=== PATIENT | male | born 1965 | race Caucasian/White ===

== ENCOUNTER → 2019-07-13 13:38 | Outpatient (CLI) | payer BC, SELFPAY ==
[2019-07-13 14:51] LABS: Basophils # 0.1 K/mm3 (0-0.2); Basophils % 0.8 % (0.1-2.0); Eosinophils # 0.2 K/mm3 (0.0-0.4); Eosinophils % 2.1 % (0.1-12.0); Hematocrit 45.5 % (42.0-52.0); Hemoglobin 14.9 g/dL (14.1-18.0); Lymphocytes # 2.8 K/mm3 (0.7-4.5); Lymphocytes % 36.3 % (10-50); Mean Corpuscular HGB Conc 32.9 g/dL (31.8-35.4); Mean Corpuscular Hemoglobin 29.9 pg (27.0-31.2); Mean Platelet Volume 8.7 fl (7.4-10.4); Monocytes # 0.6 K/mm3 (0.1-1.0); Monocytes % 7.6 % (1.7-9.3); Neutrophils # 4.1 K/mm3 (1.8-7.8); Neutrophils % 53.3 % (37.0-80.0); Platelet Count 329 K/mm3 (142-424); Red Cell Distribution Width 12.7 % (11.5-17.5); White Blood Count 7.8 K/mm3 (4.8-10.8)
[2019-07-13 14:52] LABS: Alanine Aminotransferase 32 U/L (12-78); Albumin Level 4.5 g/dl (3.5-5.0); Albumin/Globulin Ratio 1.5 (1.1-1.8); Alkaline Phosphatase 44 U/L (38-126); Anion Gap 14.5 mEq/L (5-15); Aspartate Amino Transferase 26 U/L (17-59); Bilirubin,Total 0.3 mg/dl (0.2-1.3); Blood Urea Nitrogen 23 mg/dl (9-20); Calcium 9.8 mg/dl (8.4-10.2); Carbon Dioxide 23 mmol/L (22.0-30.0); Chloride 107 mmol/L (98-107); Chol/HDL Ratio 6.4 (1-3.5); Cholesterol 205 mg/dl (140-200); Estimated Glomerular Filt Rate 118 ml/min (>60); GFR (African American) 142 ML/MIN (>60); Glucose 97 mg/dl (74-100); HDL Cholesterol 32 mg/dl (40-60); Potassium 4.5 mmoL/L (3.5-5.1); Sodium 140 mmol/L (136-145); Total Protein,Serum 7.5 g/dl (6.3-8.2); Triglycerides 226 mg/dl (30-150); Uric Acid 8.7 mg/dl (3.5-8.5); VLDL Cholesterol 45 mg/dL (0-40)
[2019-07-13 15:03] LABS: Direct LDL Cholesterol 142.88 mg/dL (100-129)
[2019-07-13 15:11] LABS: T4 (Thyroxine) 7.9 ug/dl (5.53-11.0)
[2019-07-13 15:25] LABS: Prostate Specific Ag Screen 2.2 ng/ml (0.0-4.0); Thyroid Stimulating Hormone 2.23 uIU/mL (0.465-4.68)
[2019-07-13 15:45] LABS: Erythrocyte Sedimentation Rate 8 mm/hr (0-20)
[2019-07-15 23:10] LABS: Vitamin D 25 Hydroxy 29.6 ng/mL (30.0-100.0)
== END ==
PROVIDERS: Visit Provider Emergency Medicine
DX: M10.071 Idiopathic gout, right ankle and foot
CPT/HCPCS: 80053; 80061; 82652; 84436; 84443; 84550; 85025; 85651; G0103

== ENCOUNTER → 2019-08-13 10:05 | Outpatient (CLI) | payer BC, SELFPAY ==
--- NOTE | 2019-08-13 10:06 | MR_ITS ---
PROCEDURE: MR CERVICAL SPINE WO CON CLINICAL INDICATION: Neck pain, Neck pain and right shoulder pain. Right arm pain numbness and soreness COMPARISON: No exams were available for comparison TECHNIQUE: Standard multiplanar multiecho sequences are performed without contrast. 3-D MIP and myelographic images are also rendered and reviewed FINDINGS: The craniocervical junction has an unremarkable appearance. There is normal alignment with slight reversal of the cervical lordosis. C2-C3: There is some mild right foraminal narrowing from facet and uncovertebral hypertrophy. C3-C4: Mild bilateral foraminal narrowing from facet and uncovertebral hypertrophy and minimal bulging disc. There is borderline narrowing of the canal at 11-12 mm. C4-C5: Degenerative disc disease. There is moderate to severe right-sided foraminal narrowing from facet and uncovertebral hypertrophy C5-C6: Degenerate disc disease with bulging disc with narrowing of the canal at 10 mm. There is uncovertebral hypertrophy with severe bilateral foraminal narrowing. There is mild retrolisthesis of C5 of 3 mm. There is a small left foraminal disc osteophyte complex causing left lateral recess and foraminal narrowing. C6-C7 and C7-T1 have an unremarkable appearance. IMPRESSION: 1. Abnormal MRI of the cervical spine with multilevel cervical spondylosis with degenerative disc disease, bulging disc, and facet and uncovertebral hypertrophy.. Please see above for detailed description at each level 2. C3-C4: Mild bilateral foraminal narrowing from facet and uncovertebral hypertrophy and minimal bulging disc. There is borderline narrowing of the canal at 11-12 mm. 3. C4-C5: Degenerative disc disease. There is moderate to severe right-sided foraminal narrowing from facet and uncovertebral hypertrophy 4. C5-C6: Degenerate disc disease with bulging disc with narrowing of the canal at 10 mm. There is uncovertebral hypertrophy with severe bilateral foraminal narrowing. There is mild retrolisthesis of C5 of 3 mm. There is a small left foraminal disc osteophyte complex causing left lateral recess and foraminal narrowing. Dictated by: Mango Mims MD 08/14/2019 09:07 Electronically signed by Mango Mims MD in [place] 08/14/2019 09:07
== END ==
PROVIDERS: PCP Nurse Practitioner Family; Visit Provider Nurse Practitioner Family
DX: M54.2 Cervicalgia (principal); R20.0 Anesthesia of skin; R20.2 Paresthesia of skin
CPT/HCPCS: 72141; 76376

== ENCOUNTER → 2019-09-01 09:49 | Outpatient (POV) | payer BC, SELFPAY ==
[2019-09-01 10:12] VITALS: BP 187/78; PULSE 72; RESP 18; TEMP 36.8; O2SAT 98; BMI 29.7
--- NOTE | 2019-09-01 11:34 | HMH.PMCON ---
Assessment and Plan (1) Degenerative disc disease, cervical Current visit: Yes Status: Chronic Category: Medical Code(s): M50.30 - Other cervical disc degeneration, unspecified cervical region - Assessment and plan all Dx Assessment and Plan for all problems:: We will give the patient 1 month of gabapentin 300 mg 1 p.o. 3 times daily. We will see him back after he is seen been seen by Dr. Scott. He has been instructed to call the office if he has any issues prior to his next appointment. Dr. Trevino has reviewed this note and agrees with this plan of care. This note was dictated using voice recognition software and may contain errors or omissions HPI - Data of Consult Consult date: 09/01/19 Requesting Physician: Sandra Obregon APRN Primary Care Provider: Deniz Ellis MD - Consult Narrative Reason for consult: Neck pain History of present illness: Mr. Graham is a 54 year old male who presents today for consultation in regards to his cervical pain. Patient used to live in [place]. He was diagnosed by a neurosurgeon at that time via x-ray that he was in need of neck surgery. Patient has since moved to [place]. Patient was receiving [place] and gabapentin and cyclobenzaprine to help with the pain. Patient states that it did help. Patient and I discussed epidural injections he is uninterested in pursuing this. Patient does have an appointment with Dr. Scott September 13. Patient does have an MRI showing degenerative type changes along with severe foraminal narrowing. Most of his pain is neck radiating into his bilateral arms. He rates his pain today a 7 out of 10. He states all activity increases it while hot showers decrease it. Patient has completed physical therapy with minimal relief. CC: Sandra Obregon APRN [facility] [place] History I have reviewed the patient's past medical history: Yes Medical History: Denies:: Cancer, Diabetes Mellitus Type 1, Diabetes Mellitus Type 2, MRSA *Have you ever received a pneumonia vaccine?: Yes *Have you received a flu vaccine this season?: Yes Other Medical History: Reports: Glaucoma, Other (ABD hernias,gout) Other Surgeries: Yes: Cholecystectomy, Hernia Repair Amputation: No Fractures: Yes (left wrist,rt wrist,left knee) - *Social History Smoking Status: Current every day smoker Tobacco Type: cigarettes # Packs/Day (cigarettes): 1 Alcohol Intake: never Substance Use Type: denies use *Occupational Status:: other Housing: house Household Members: family *Travel in the last 8 weeks: None Family Hx:: Diabetes, Hypertension Review of Systems - Review of Systems ROS General: no recent weight change, no fever, no sleep disturbances Respiratory: no cough, no shortness of air, no recurring pulmonary infections Cardiovascular/Peripheral Vascular: No chest pain, No palpitations, no edema, no shortness of breath. Gastrointestinal: no new onset incontinence, normal bowel movements reported Genitourinary: no new onset incontinence Musculoskeletal: Neck pain Psychiatric: normal mood/ affect Neurological: [denies new onset weakness in extremities], [denies new onset balance issues] Meds Home Medications Medication Instructions Recorded Confirmed Type colchicine 0.6 mg capsule 0.6 mg PO BID 14 Days #28 cap 08/03/19 08/03/19 Rx cyclobenzaprine 10 mg tablet 10 mg PO TID PRN #30 tab 08/03/19 08/03/19 Rx indomethacin 50 mg capsule 50 mg PO BID 14 Days #28 cap 08/03/19 08/03/19 Rx prednisone 20 mg tablet 20 mg PO BID 10 Days #20 tab 08/03/19 08/03/19 Rx Gabapentin [Neurontin 300mg 300 mg PO TID #90 cap 09/01/19 Rx capsule] Allergies Allergy/AdvReac Type Severity Reaction Status Date / Time codeine Allergy Mild itch Verified 08/03/19 11:39 Objective Vital signs: Temp Pulse Resp BP Pulse Ox 98.2 F 72 18 187/78 H 98 09/01/19 10:12 09/01/19 10:12 09/01/19 10:12 09/01/19 10:12 09/01/19 10:12 Narrative: Physical Exam Gen
== END ==
PROVIDERS: PCP Emergency Medicine; Visit Provider Clinical Nurse Specialist Family Health
DX: M50.30 Other cervical disc degeneration, unspecified cervical region (principal)
CPT/HCPCS: 99202

== ENCOUNTER → 2019-09-21 14:40 | Outpatient (CLI) | payer BC, SELFPAY ==
[2019-09-21 19:25] LABS: Coronavirus 19 IgG Antibody Negative (Negative); Coronavirus 19 IgM Antibody Negative (Negative)
== END ==
PROVIDERS: PCP Nurse Practitioner Family; Visit Provider Nurse Practitioner Family
DX: Z03.818 Encounter for observation for suspected exposure to other biological agents ruled out (principal)
CPT/HCPCS: 36415; 86328

== ENCOUNTER 2020-01-19 12:16 | Emergency (ER) | payer BC, SELFPAY ==
[2020-01-19 12:33] VITALS: BP 135/78; PULSE 71; RESP 17; TEMP 36.7; O2SAT 98; BMI 31.9
--- NOTE | 2020-01-19 12:38 | CT_ITS ---
PROCEDURE: CT ABDOMEN PELVIS W CON CLINICAL INDICATION: rlq abd pain Right lower quadrant pain COMPARISON: No exams were available for comparison TECHNIQUE: IV Contrast: 75ML OPTIRAY 350 Oral Contrast None Axial images obtained with sagittal and coronal reformats. All CT scans at the facility use one or more dose reduction, viz: automated exposure control, ma/kV adjustment per patient size (including targeted exams where dose is matched to indication, i.e. head), or iterative reconstruction technique. FINDINGS: LOWER THORAX: Coronary artery calcification is noted. ABDOMEN & PELVIS: Status post cholecystectomy. The liver, spleen, adrenal glands, and pancreas have an unremarkable appearance. No renal or ureteral calculi. No hydronephrosis. There are few scattered small retroperitoneal lymph nodes. There is minimal ectasia the abdominal aorta measuring up to 2.5 cm. No evidence of appendicitis. There is colonic diverticulosis. No evidence of diverticulitis. No intestinal obstruction or free air. There is coarse central prostate calcification. The urinary bladder wall slightly thickened but may be due to nondistention. There is some increased density in subcutaneous fat at the umbilical region with a tiny right para umbilical hernia containing fat. This subcutaneous density could be related to scarring. There are small bilateral inguinal hernias which contain fat. No acute bony finding. Degenerative changes are present in the lumbar spine. A well-circumscribed cystic lesion involves the super acetabular area on the left measuring 3 cm by 1.7 cm. This has a benign appearance with sclerotic margins. IMPRESSION: 1. No acute abdominal or pelvic findings. 2. Unremarkable appearing appendix. No obstructing renal or ureteral calculi 3. Bilateral inguinal hernias. Small right para umbilical hernia with some irregular increased density at the umbilical region which could be some scarring 4. Benign-appearing cystic lesion of the super acetabular area on the left possibly due to a prominent geode. Consider follow-up to confirm stability Dictated by: Mango Mims MD 01/19/2020 13:16 Mango Mims MD in [place] 01/19/2020 13:16
[2020-01-19 12:50] LABS: Microscopic, Urine URINE MICROSCOPIC (MICROSCOPIC)
[2020-01-19 12:52] LABS: Appearance,Urine CLEAR (Clear); Bilirubin,Urine Negative (Negative); Blood, Urine 2+ (Negative); Color,Urine YELLOW (Yellow); Glucose,Urine (UA) Negative (Negative); Ketones,Urine Negative (Negative); Leukocyte Esterase,Urine Negative (Negative); Nitrate,Urine Negative (Negative); PH,Urine 5.5 (5.0-8.5); Protein,Urine Negative (Negative); Specific Gravity, Urine 1.025 (1.005-1.030); Urobilinogen,Urine 0.2 EU/dl (0.2)
[2020-01-19 12:53] LABS: Basophils # 0.1 K/mm3 (0-0.2); Basophils % 0.7 % (0.1-2.0); Eosinophils # 0.2 K/mm3 (0.0-0.4); Eosinophils % 3.1 % (0.1-12.0); Hemoglobin 15.1 g/dL (14.1-18.0); Lymphocytes # 2.6 K/mm3 (0.7-4.5); Lymphocytes % 34.8 % (10-50); Mean Corpuscular HGB Conc 32.8 g/dL (31.8-35.4); Mean Corpuscular Hemoglobin 30.4 pg (27.0-31.2); Mean Corpuscular Volume 92.6 fl (80-94); Mean Platelet Volume 6.9 fl (7.4-10.4); Monocytes # 0.5 K/mm3 (0.1-1.0); Monocytes % 6.2 % (1.7-9.3); Neutrophils # 4.1 K/mm3 (1.8-7.8); Neutrophils % 55.3 % (37.0-80.0); Platelet Count 285 K/mm3 (142-424); Red Blood Count 4.97 M/mm3 (4.60-6.20); Red Cell Distribution Width 12.3 % (11.5-17.5); White Blood Count 7.4 K/mm3 (4.8-10.8)
[2020-01-19 12:57] LABS: Chloride 108 mmol/L (98-107); Sodium 142 mmol/L (136-145)
[2020-01-19 12:58] LABS: Potassium 4.2 mmoL/L (3.5-5.1)
[2020-01-19 13:00] LABS: Alanine Aminotransferase 31 U/L (12-78); Alkaline Phosphatase 39 U/L (38-126); Amylase 65 U/L (30-110); Anion Gap 12.2 mEq/L (5-15); Aspartate Amino Transferase 30 U/L (17-59); Bilirubin,Total 0.4 mg/dl (0.2-1.3); Blood Urea Nitrogen 19 mg/dl (9-20); Calcium 9.7 mg/dl (8.4-10.2); Carbon Dioxide 26 mmol/L (22.0-30.0); Creatinine Clearance Estimated 169 mL/min (50-200); Estimated Glomerular Filt Rate 101 ml/min (>60); GFR (African American) 122 ML/MIN (>60); Glucose 135 mg/dl (74-100); Lipase 134 U/L (23-300)
[2020-01-19 13:01] LABS: Albumin Level 4.3 g/dl (3.5-5.0); Albumin/Globulin Ratio 1.5 (1.1-1.8); Globulin 2.9 g/dL (1.3-3.2); Total Protein,Serum 7.2 g/dl (6.3-8.2)
[2020-01-19 13:13] LABS: Troponin I < 0.01 ng/ml (0.00-0.034)
--- NOTE | 2020-01-19 14:01 | HMH.EDABDPAI ---
ED Disposition Clinical Impression: Bilateral inguinal hernia without obstruction or gangrene Qualifiers: Recurrence: not specified as recurrent Qualified Code(s): K40.20 - Bilateral inguinal hernia, without obstruction or gangrene, not specified as recurrent Disposition: Home, Self-Care Condition on Discharge: Good Instructions: DI for Groin Hernia Prescriptions: Hydrocodone/Acetaminophen [[place] 5-325 Tablet] 1 each PO TID #10 tab Prescription Printed Referrals: Deniz Ellis MD [Primary Care Provider] - Chirag Delgadillo MD [Staff Physician] - - Critical Care Critical Care Time: No Attestation: On 01/19/20, the high probability of a clinically significant, sudden or life threatening deterioration of the following system(s) required my full and direct attention, intervention and personal management. The time I documented below is in addition to time spent performing reported procedures but includes the following listed in this critical care notation. Medical Decision Making - Medical Records Medical records reviewed: Yes: I reviewed the patient's medical records. - Daniel Inquiry Pt receiving controlled substance: Yes Daniel was queried for this patient: No Reason not queried -: Daniel login issues Risks and benefits of using a controlled substance: were discussed with pt by me Vital Signs: 01/19/20 12:33 Temperature 98.0 F Temperature Source Oral Pulse Rate [Right Radial] 71 Respiratory Rate 17 Blood Pressure [Right Arm] 135/78 Blood Pressure Mean [Right Arm] 97 02 Sat by Pulse Oximetry 98 Oxygen Delivery Method Room Air - Lab Data Lab Results 01/19/20 12:30: Urine Color Yellow, Urine Appearance Clear, Urine pH 5.5, Ur Specific [place] 1.025, Urine Protein Negative, Urine Glucose (UA) Negative, Urine Ketones Negative, Urine Blood 2+, Urine Nitrate Negative, Urine Bilirubin Negative, Urine Urobilinogen 0.2, Ur Leukocyte Esterase Negative, Urine RBC 5-10, Urine WBC 3-5, Ur Squamous Epith Cells 3-5 01/19/20 12:30: WBC 7.4, RBC 4.97, Hgb 15.1, Hct 46.0, MCV 92.6, MCH 30.4, MCHC 32.8, RDW 12.3, Plt Count 285, MPV 6.9 L, Neut % (Auto) 55.3, Lymph % (Auto) 34.8, [place] % (Auto) 6.2, Eos % (Auto) 3.1, Baso % (Auto) 0.7, Neut # (Auto) 4.1, Lymph # (Auto) 2.6, [place] # (Auto) 0.5, Eos # (Auto) 0.2, Baso # (Auto) 0.1 01/19/20 12:30: Sodium 142, Potassium 4.2, Chloride 108 H, Carbon Dioxide 26, Anion Gap 12.2, BUN 19, Creatinine 0.80, Estimated Creat Clear 169, Estimated GFR 101, Est GFR ( Amer) 122, Glucose 135 H, Calcium 9.7, Total Bilirubin 0.4, AST 30, ALT 31, Alkaline Phosphatase 39, Troponin I < 0.01, Total Protein 7.2, Albumin 4.3, Globulin 2.9, Albumin/Globulin Ratio 1.5, Amylase 65, Lipase 134 Result diagrams: 01/19/20 12:30 01/19/20 12:30 Orders (Tests/Meds): ED MEDICATIONS Discontinued Medications Generic Name Dose Route Start Last Admin Trade Name Marioq PRN Reason Stop Dose Admin Sodium Chloride 1,000 mls @ 999 mls/hr 01/19/20 12:45 01/19/20 13:06 Sod Chlor 0.9% 1000ml Bag IV 01/19/20 13:45 999 mls/hr .Q1H1M DOE Administration Ioversol 75 ml 01/19/20 12:57 01/19/20 12:57 Ioversol-350 (74%) 100ml Vial IV 01/19/20 12:58 75 ml ONCE ONE Administration Protocol Ketorolac Tromethamine 30 mg 01/19/20 12:43 01/19/20 13:06 Ketorolac 30mg/Ml Vial IV 01/19/20 12:44 30 mg ONCE ONE Administration Morphine Sulfate 4 mg 01/19/20 12:44 01/19/20 13:06 Morphine 4mg/Ml Syringe IV 01/19/20 12:45 4 mg ONCE ONE Administration Ondansetron HCl 4 mg 01/19/20 12:43 01/19/20 13:06 Ondansetron 4mg/2ml Vial IV 01/19/20 12:44 4 mg ONCE ONE Administration Sodium Chloride 10 ml 01/19/20 12:57 01/19/20 12:57 Sodium Chloride 0.9% 10ml Syr (Rad Only) IV 01/19/20 12:58 10 ml ONCE ONE Administration ORDERS Category Date Time Status Troponin I Q3H Lab 01/19/20 15:45 Ordered Troponin I Q3H Lab 01/19/20 18:45 Ordered - CT D
[2020-01-19 14:14] VITALS: BP 116/71; PULSE 85; RESP 16; TEMP 36.8; O2SAT 99
== END 2020-01-19 14:21 | disposition home or self-care (01) ==
PROVIDERS: Emergency Provider Emergency Medicine; PCP Emergency Medicine
DX: K40.20 Bilateral inguinal hernia, without obstruction or gangrene, not specified as recurrent (principal); F17.210 Nicotine dependence, cigarettes, uncomplicated
CPT/HCPCS: 74177; 80053; 81001; 82150; 83690; 84484; 85025; 96365; 96375; 99283; J2405; Q9967

== ENCOUNTER 2020-01-27 10:36 | Outpatient (CLI) | payer BC, SELFPAY ==
[2020-01-27 10:39] LABS: Microscopic, Urine URINE MICROSCOPIC (MICROSCOPIC)
[2020-01-27 11:06] LABS: Appearance,Urine CLEAR (Clear); Bilirubin,Urine Negative (Negative); Blood, Urine 2+ (Negative); Color,Urine YELLOW (Yellow); Glucose,Urine (UA) Negative (Negative); Ketones,Urine Negative (Negative); Leukocyte Esterase,Urine Negative (Negative); Nitrate,Urine Negative (Negative); Protein,Urine Negative (Negative); Specific Gravity, Urine 1.015 (1.005-1.030); Urobilinogen,Urine 0.2 EU/dl (0.2)
--- NOTE | 2020-01-27 11:25 | ECG_ITS ---
APPROVED REPORT Exam: Resting ECG HR:62 bpm ECG Measurements Heart Rate 62 AXES QRSd 86 QRS 86 QT 412 T 6 QTc 418 Conclusion Junctional rhythm Abnormal ECG Electronically signed by : Von Simons, 01/31/2020 09:48:08
[2020-01-27 12:08] VITALS: BP 151/104; PULSE 57; RESP 20; TEMP 36.4; O2SAT 99
[2020-01-27 12:40] VITALS: BP 138/77; PULSE 58; RESP 20
[2020-01-27 13:41] LABS: Coronavirus 19 IgG Antibody Negative (Negative); Coronavirus 19 IgM Antibody Negative (Negative)
== END 2020-01-27 12:40 | disposition home or self-care (01) ==
PROVIDERS: PCP Emergency Medicine; Visit Provider Surgery
DX: Z01.818 Encounter for other preprocedural examination (principal); K40.20 Bilateral inguinal hernia, without obstruction or gangrene, not specified as recurrent
CPT/HCPCS: 36415; 81001; 86328; 93005; 96372

== ENCOUNTER 2020-01-29 10:06 | Day surgery (SDC) | payer BC, SELFPAY ==
[2020-01-28 14:32] VITALS: BMI 31.4
[2020-01-29] VITALS (14 sets, daily range): BP systolic 111–157; BP diastolic 73–91; PULSE 55–77; RESP 12–20; TEMP 36.3–43; O2SAT 94–98
--- NOTE | 2020-01-29 13:58 | HMH.ANESCL ---
[facility] Anesthesia Checklist - Structural Data Admitted From: Home Planned Operative Procedure/s: r inguinal hernia repair Consent for Planned Operative Procedure(s) Verified: Yes - Additional verifications Anesthesia Reactions: No Hx Blood Transfusions: No Blood Transfusion Reaction: No - Airway Assessment C-Spine Mobility Assessed: Yes TMJ Mobility Assessed: Yes Dentition: Poor Dentition - Neurological Assessment Level of Consciousness: Awake, Alert, Appropriate - Anesthesia Plan Anesthesia Risk discussed: Yes Anesthesia Plan: Verified ASA Class: III Anesthesia Type: General [facility] History I have reviewed the patient's past medical history: Yes Medical History: Denies:: Cancer, Diabetes Mellitus Type 1, Diabetes Mellitus Type 2, Internal Pacemaker, MRSA, Seizures *Have you ever received a pneumonia vaccine?: No *Have you received a flu vaccine this season?: No Other Medical History: Reports: Glaucoma, Other. Denies: Blood Transfusion Reaction Anesthesia experience/problems:: none Other Surgeries: Yes: Cholecystectomy, Colonoscopy, Hernia Repair (UMBILICAL). No: Pacemaker Amputation: No Fractures: Yes (left wrist,rt wrist,left knee) - *Social History Last grade of school completed: Some college Smoking Status: Current every day smoker Tobacco Type: cigarettes # Packs/Day (cigarettes): 1 Alcohol Intake: never Substance Use Type: marijuana *Occupational Status:: unemployed Housing: house Household Members: spouse *Travel in the last 8 weeks: None Family Hx:: Diabetes, Hypertension
--- NOTE | 2020-01-29 15:08 | P.OP_ITS ---
Date of procedure: 01/29/20 Pre-op Diagnosis:: Right inguinal hernia Post-op Diagnosis:: Same Procedure performed:: Open right inguinal hernia repair Surgeon:: Chirag Delgadillo MD HUMAN CAPITAL ANALYST:: Huseyin Frederick Anesthesia: GETA Estimated blood loss (mL): 10 Operative findings:: Fairly large indirect defect Operative note:: After informed consent was obtained the patient was taken to the operating room and placed in the supine position. General anesthesia was induced and his abdomen/groin/scrotum was prepped and draped in a sterile fashion. After infiltration of local anesthetic an oblique right groin incision was made. The deep subcutaneous tissue was dissected with electrocautery through Rebecca's fascia to the external aponeurosis. The external aponeurosis was sharply opened to the level of the external ring. The contents of the canal were carefully elevated. A fairly large indirect defect was noted. Careful dissection was utilized to free the herniated tissue and an extra-large PerFix plug was secured in position with interrupted Ethibond. A second large PerFix plug was then utilized to close a gap lateral to the initial site. The PerFix overlay was then secured to the shelving edge inferiorly and fascial margin superiorly utilizing interrupted 0 Ethibond. The external aponeurosis was reapproximated with running Vicryl. Rebecca's fascia was closed in the same manner. Skin was then reapproximated with 4-0 Monocryl in a running subcuticular fashion. Dressings were applied and the patient was transferred to recovery in stable condition. Condition: stable Disposition: PACU Specimens:: None Complications:: No immediate
--- NOTE | 2020-01-29 15:14 | P.PN_ITS ---
[facility] Anesthesia Record Part I Intake, IV Amount: 2,000 Estimated blood loss (mL): 0 Urine output (mL): 0 Blood Pressure: 128/87 SaO2: 94 Pulse Rate: 77 Respiratory Rate: 12 Temperature: 97.6 F Patient is:: Awake, Stable Stable to PACU at:: 15:10
--- NOTE | 2020-01-29 16:25 | HMH.ANESII ---
[facility] Anesthesia Record Part II Discharge Time: 16:00 Destination: Surgical Day Care (OP Surgery) PACU nurse assessment reviewed?: Yes Patient Condition:: Good Anesthesia Complications:: None Swallowing reflex intact?: Yes Cyanosis?: No Blood Pressure: 129/78 Pulse Rate: 69 Temperature: 98.1 F Mental Status: Alert & Oriented Pain level:: 10 Nausea and/or vomitting:: None Intake, IV Amount: 0
--- NOTE | 2020-01-29 16:26 | SUR.PHASEI ---
1555- Mariano COMMERCIAL [employer]IVER at bedside. Pt continues to cry and rate pain #10 (1-10) in right groin. May give another 1mg of diladid for a PACU total of 2mg and 4mg morphine. Mariano spoke with Dr Delgadillo and he is aware. no additional orders for pain medication. Pt may be discharged to post op.
== END 2020-01-29 16:44 | disposition home or self-care (01) ==
LOC: OR 10:07
PROVIDERS: PCP Emergency Medicine; Visit Provider Surgery
PROC: (CPT 49505; principal; 2020-01-29 11:30)
DX: K40.90 Unilateral inguinal hernia, without obstruction or gangrene, not specified as recurrent (principal); Z90.49 Acquired absence of other specified parts of digestive tract; Z88.6 Allergy status to analgesic agent
CPT/HCPCS: 49505; 96374

== ENCOUNTER 2020-02-20 19:04 | Emergency (ER) | payer BC, SELFPAY ==
[2020-02-20 19:28] VITALS: BP 128/95; PULSE 79; RESP 16; TEMP 37.3; O2SAT 98; BMI 29.6
--- NOTE | 2020-02-20 19:39 | ECG_ITS ---
APPROVED REPORT Exam: Resting ECG HR:78 bpm ECG Measurements Heart Rate 78 AXES TX 140 P 24 QRSd 92 QRS 17 QT 368 T 28 QTc 419 Conclusion Normal sinus rhythm Normal ECG Electronically signed by : Nigel Jo, 02/21/2020 16:52:19
--- NOTE | 2020-02-20 19:40 | XR_ITS ---
PROCEDURE: XR CHEST 2V CLINICAL HISTORY: chest pain COMPARISON: No exams were available for comparison FINDINGS: The cardiomediastinal silhouette and pulmonary vascularity are within normal limits. There is increased density in the left lung base which may be due to pericardial fat pad and vascular overlap. The remaining lungs are clear. There are degenerative changes in the thoracic spine with mild kyphosis and mild wedging of T8 and T9 which may be chronic. IMPRESSION: Left lower lobe opacity which may be due to pericardial fat pad. Cannot exclude underlying infiltrate. Follow-up suggested Dictated by: Mango Mims MD 02/20/2020 23:02 Mango Mims MD in [place] 02/20/2020 23:02
--- NOTE | 2020-02-20 19:40 | HMH.EDGENADL ---
ED Disposition Clinical Impression: Elevated BP without diagnosis of hypertension Disposition: Home, Self-Care Condition on Discharge: Good Instructions: DI for High Blood Pressure Additional Instructions: monitor bp at home and see pcp for follow up Referrals: Deniz Mckeon MD [Primary Care Provider] - - Critical Care Critical Care Time: No Attestation: On 02/20/20, the high probability of a clinically significant, sudden or life threatening deterioration of the following system(s) required my full and direct attention, intervention and personal management. The time I documented below is in addition to time spent performing reported procedures but includes the following listed in this critical care notation. Medical Decision Making - Medical Records Medical records reviewed: Yes: I reviewed the patient's medical records. - Daniel Inquiry Pt receiving controlled substance: No Vital Signs: 02/20/20 19:28 02/20/20 20:12 02/20/20 20:38 Temperature 99.1 F Temperature Source Oral Pulse Rate [Right Brachial] 79 87 86 Respiratory Rate 16 18 18 Blood Pressure [Right Arm] 128/95 H 122/90 136/90 Blood Pressure Mean [Right Arm] 106 100 105 Blood Pressure Source [Right Arm] Automatic Cuff Blood Pressure Position [Right Arm] Sitting 02 Sat by Pulse Oximetry 98 97 99 Oxygen Delivery Method Room Air Room Air Room Air - Lab Data Lab results reviewed: Yes: I reviewed the patient's lab results. Lab Results 02/20/20 19:35: WBC 9.2, RBC 5.01, Hgb 15.7, Hct 46.2, MCV 92.2, MCH 31.4 H, MCHC 34.1, RDW 13.1, Plt Count 311, MPV 7.0 L, Neut % (Auto) 62.5, Lymph % (Auto) 28.3, Esmeralda % (Auto) 6.4, Eos % (Auto) 2.2, Baso % (Auto) 0.6, Neut # (Auto) 5.8, Lymph # (Auto) 2.6, Esmeralda # (Auto) 0.6, Eos # (Auto) 0.2, Baso # (Auto) 0.1 02/20/20 19:35: Sodium 142, Potassium 3.9, Chloride 107, Carbon Dioxide 24, Anion Gap 14.9, BUN 20, Creatinine 0.70, Estimated Creat Clear 151, Estimated GFR 118, Est GFR ( Amer) 142, Glucose 104 H, Calcium 9.7, Troponin I < 0.01, TSH 1.01 02/20/20 19:35: Free T4 0.82 02/20/20 19:35: NT-Pro-B Natriuret Pep 17.9 Result diagrams: 02/20/20 19:35 02/20/20 19:35 Orders (Tests/Meds): ED MEDICATIONS Generic Name Dose Route Start Last Admin Trade Name Freq PRN Reason Stop Dose Admin Sodium Chloride 1,000 mls @ 999 mls/hr 02/20/20 20:15 02/20/20 20:15 Sod Chlor 0.9% 1000ml Bag IV 02/20/20 21:15 999 mls/hr .Q1H1M DOE Administration ORDERS Category Date Time Status Chest XR 2 view (NOT portable) [XR chest 2V] Stat Exams 02/20/20 19:40 Taken Troponin I Q3H Lab 02/20/20 22:45 Ordered Troponin I Q3H Lab 02/21/20 01:45 Ordered - Radiology Data #1 Image(s): Chest Image Reviewed: Yes I reviewed the patient's radiology image Preliminary Findings: Normal/NAD - ECG Data Tracing #1 Normal Sinus Rhythm: Yes Ischemic changes: non-specific ST-T wave changes - Reevaluation(s) Time: 21:04 Reevaluation #1: improved General Adult HPI - General Chief complaint: Hyper/Hypoglycemia Stated complaint: Surg BP high Time Seen by Provider: 02/20/20 19:40 Mode of Arrival: Family Vehicle Source of Information: Patient, Medical Record Limitations: No Limitations Description of Symptoms (Recalled from ER Triage Doc. by RN): pt presents with intermittent sweats, chest pressure, smoker's, hot ears and headache. states he had a hernia repair [address] cruz, and it was noted that he was hypertensive. he has since been monitoring it at home, and was going to go saturday and get checked by dr mckeon's office, however today he felt really bad . pt is a&ox4. states his headache hovers in his neck and top of head, that his sweats happen without a reason , and his chest feels pressured - History of Present Illness HPI narrative: pt has not felt well over the last few days - has elevated bp at home - no chest pain or neuro sx - no sob Onset (ago): hour(s) A
[2020-02-20 20:01] LABS: Basophils # 0.1 K/mm3 (0-0.2); Basophils % 0.6 % (0.1-2.0); Eosinophils # 0.2 K/mm3 (0.0-0.4); Eosinophils % 2.2 % (0.1-12.0); Hematocrit 46.2 % (42.0-52.0); Hemoglobin 15.7 g/dL (14.1-18.0); Lymphocytes # 2.6 K/mm3 (0.7-4.5); Lymphocytes % 28.3 % (10-50); Mean Corpuscular HGB Conc 34.1 g/dL (31.8-35.4); Mean Corpuscular Hemoglobin 31.4 pg (27.0-31.2); Mean Corpuscular Volume 92.2 fl (80-94); Monocytes # 0.6 K/mm3 (0.1-1.0); Monocytes % 6.4 % (1.7-9.3); Neutrophils # 5.8 K/mm3 (1.8-7.8); Neutrophils % 62.5 % (37.0-80.0); Platelet Count 311 K/mm3 (142-424); Red Blood Count 5.01 M/mm3 (4.60-6.20); Red Cell Distribution Width 13.1 % (11.5-17.5); White Blood Count 9.2 K/mm3 (4.8-10.8)
[2020-02-20 20:08] LABS: Anion Gap 14.9 mEq/L (5-15); Blood Urea Nitrogen 20 mg/dl (9-20); Calcium 9.7 mg/dl (8.4-10.2); Carbon Dioxide 24 mmol/L (22.0-30.0); Chloride 107 mmol/L (98-107); Creatinine Clearance Estimated 151 mL/min (50-200); Estimated Glomerular Filt Rate 118 ml/min (>60); GFR (African American) 142 ML/MIN (>60); Glucose 104 mg/dl (74-100); Potassium 3.9 mmoL/L (3.5-5.1); Sodium 142 mmol/L (136-145)
[2020-02-20 20:12] VITALS: BP 122/90; PULSE 87; RESP 18; O2SAT 97
[2020-02-20 20:18] LABS: NT Pro Brain Natriuretic Pep. 17.9 pg/mL (0-125)
[2020-02-20 20:26] LABS: Free T4 (Free Thyroxine) 0.82 ng/dl (0.78-2.19)
[2020-02-20 20:29] LABS: Troponin I < 0.01 ng/ml (0.00-0.034)
[2020-02-20 20:38] VITALS: BP 136/90; PULSE 86; RESP 18; O2SAT 99
[2020-02-20 20:40] LABS: Thyroid Stimulating Hormone 1.01 uIU/mL (0.465-4.68)
[2020-02-20 21:07] VITALS: BP 144/81; PULSE 67; RESP 16; TEMP 37.2; O2SAT 100
== END 2020-02-20 21:06 | disposition home or self-care (01) ==
PROVIDERS: Emergency Provider Physician Assistant; PCP Emergency Medicine
DX: R51.9 Headache, unspecified (principal); R03.0 Elevated blood-pressure reading, without diagnosis of hypertension; F12.10 Cannabis abuse, uncomplicated; Z90.49 Acquired absence of other specified parts of digestive tract; E16.2 Hypoglycemia, unspecified; Z88.5 Allergy status to narcotic agent; F17.210 Nicotine dependence, cigarettes, uncomplicated
CPT/HCPCS: 71046; 80048; 83880; 84439; 84443; 84484; 85025; 93005; 96365; 99283

== ENCOUNTER → 2020-03-18 18:21 | Outpatient (CLI) | payer BC, SELFPAY ==
[2020-03-18 19:39] LABS: Uric Acid 7.8 mg/dl (3.5-8.5)
== END ==
PROVIDERS: Visit Provider Emergency Medicine
DX: M10.9 Gout, unspecified (principal)
CPT/HCPCS: 84550

== ENCOUNTER → 2020-05-18 08:30 | Outpatient (CLI) | payer OTHER, SELFPAY ==
[2020-05-19 08:46] LABS: Amphetamine/Metha Screen,Urine Negative ng/ml (<1000)
[2020-05-19 08:47] LABS: Barbiturates Screen,Urine Negative ng/ml (<200)
[2020-05-19 08:48] LABS: Benzodiazepines Screen,Urine Negative ng/ml (<200); Cannabinoid Screen,Urine Positive ng/ml (<50)
[2020-05-19 08:49] LABS: Cocaine Screen,Urine Negative ng/ml (<300); Methadone Screen,Urine Negative ng/ml (<300)
[2020-05-19 08:50] LABS: Opiate Screen,Urine Positive ng/ml (<300)
[2020-05-19 08:51] LABS: Phencyclidine Screen,Urine Negative ng/ml (<25)
== END ==
PROVIDERS: Visit Provider Emergency Medicine
DX: M50.30 Other cervical disc degeneration, unspecified cervical region (principal); Z79.899 Other long term (current) drug therapy
CPT/HCPCS: 80305

== ENCOUNTER → 2020-06-09 13:09 | Outpatient (CLI) | payer OTHER, SELFPAY ==
--- NOTE | 2020-06-09 13:15 | XR_ITS ---
PROCEDURE: XR FOOT WT BEARING RT 3V CLINICAL INDICATION: pain COMPARISON: No exams were available for comparison FINDINGS: No fracture or dislocation. No lytic or blastic change. There is normal mineralization. Mild osteoarthritic change 1st metatarsophalangeal joint. Bony exostosis is present between the base of the 4th and 5th metatarsals. Mild osteoarthritic changes are present at the talonavicular joint. There is a small calcaneal spur. Other findings:None. IMPRESSION: Mild degenerative changes as described above Dictated by: Mango Mims MD 06/09/2020 15:01 Mango Mims MD in [place] 06/09/2020 15:01
--- NOTE | 2020-06-09 13:15 | XR_ITS ---
PROCEDURE: XR FOOT WT BEARING LT 3V CLINICAL INDICATION: pain COMPARISON: No exams were available for comparison FINDINGS: No fracture or dislocation. No lytic or blastic change. There is normal mineralization. Mild osteoarthritic change talonavicular and navicular cuneiform joint. Small calcaneal spurs present. There is a prominent posterior talar process. There is mild pes planus. Other findings:None. IMPRESSION: Degenerative changes as described Dictated by: Mango Mims MD 06/09/2020 15:02 Mango Mims MD in [place] 06/09/2020 15:02
== END ==
PROVIDERS: PCP Emergency Medicine; Visit Provider Podiatrist
DX: M79.672 Pain in left foot (principal); M79.671 Pain in right foot
CPT/HCPCS: 73630

== ENCOUNTER → 2020-06-14 12:46 | Outpatient (CLI) | payer OTHER, SELFPAY ==
--- NOTE | 2020-06-14 13:04 | US_ITS ---
APPROVED REPORT Exam Type: Ankle to Brachial Index Brooch And Bracelet Maker: Aleksandar JIANG, RVS Indications Rest Pain: Cold Sensitivity rt foot FX, Gout Risk Factors Current Smoker Pressures/Indices Right Indices Left Indices Brachial 133.00 mmHg Brachial 142.00 mmHg Low Thigh 0.00 mmHg 0.00 Low Thigh 123.00 mmHg 0.87 Calf 172.00 mmHg 1.21 Calf 140.00 mmHg 0.99 Ankle(PT) 165.00 mmHg 1.16 Ankle(PT) 166.00 mmHg 1.17 Ankle(DP) 153.00 mmHg 1.08 Ankle(DP) 155.00 mmHg 1.09 Digit 111.00 mmHg 0.78 Digit 114.00 mmHg 0.80 Findings RT ASHISH=1.16 LT ASHISH=1.17 RT TPI= 0.78 LT TPI=0.80 Conclusion RT ASHISH=1.16 LT ASHISH=1.17 RT TPI= 0.78 LT TPI=0.80 Dampened waveforms Normal ABIs Electronically signed by : Mango Mims MD 06/14/2020 18:24:59
[2020-06-14 13:38] LABS: Basophils # 0.1 K/mm3 (0-0.2); Basophils % 0.7 % (0.1-2.0); Eosinophils # 0.2 K/mm3 (0.0-0.4); Eosinophils % 2.7 % (0.1-12.0); Hematocrit 45.7 % (42.0-52.0); Hemoglobin 15.1 g/dL (14.1-18.0); Lymphocytes # 2.9 K/mm3 (0.7-4.5); Lymphocytes % 34.2 % (10-50); Mean Corpuscular HGB Conc 33.1 g/dL (31.8-35.4); Mean Corpuscular Volume 90.7 fl (80-94); Mean Platelet Volume 7.2 fl (7.4-10.4); Monocytes # 0.6 K/mm3 (0.1-1.0); Neutrophils # 4.7 K/mm3 (1.8-7.8); Neutrophils % 55.4 % (37.0-80.0); Platelet Count 358 K/mm3 (142-424); Red Blood Count 5.04 M/mm3 (4.60-6.20); Red Cell Distribution Width 13.3 % (11.5-17.5); White Blood Count 8.4 K/mm3 (4.8-10.8)
[2020-06-14 14:04] LABS: Erythrocyte Sedimentation Rate 11 mm/hr (0-20)
[2020-06-14 14:29] LABS: Alanine Aminotransferase 41 U/L (12-78); Albumin Level 4.6 g/dl (3.5-5.0); Albumin/Globulin Ratio 1.5 (1.1-1.8); Alkaline Phosphatase 50 U/L (38-126); Anion Gap 11.9 mEq/L (5-15); Aspartate Amino Transferase 28 U/L (17-59); Bilirubin,Total 0.4 mg/dl (0.2-1.3); Blood Urea Nitrogen 31 mg/dl (9-20); Carbon Dioxide 28 mmol/L (22.0-30.0); Chloride 107 mmol/L (98-107); Estimated Glomerular Filt Rate 88 ml/min (>60); GFR (African American) 106 ML/MIN (>60); Glucose 115 mg/dl (74-100); Potassium 4.9 mmoL/L (3.5-5.1); Sodium 142 mmol/L (136-145); Total Protein,Serum 7.6 g/dl (6.3-8.2); Uric Acid 8.1 mg/dl (3.5-8.5)
[2020-06-14 14:35] LABS: C-Reactive Protein 2.3 mg/L (0-4)
[2020-06-14 14:46] LABS: 25-OH Vitamin D, Total 23.8 ng/mL (30-100)
[2020-06-14 15:01] LABS: Thyroid Stimulating Hormone 1.39 uIU/mL (0.465-4.68)
[2020-06-14 15:35] LABS: Vitamin B12 344 pg/mL (239-931)
[2020-06-14 15:41] LABS: Folate 4.43 ng/mL
[2020-06-16 15:17] LABS: RA Latex Turbid. <10.0 IU/mL (0.0-13.9)
[2020-06-18 21:19] LABS: Antinuclear Antibodies, IFA Negative (.)
== END ==
PROVIDERS: Visit Provider Podiatrist
DX: R09.89 Other specified symptoms and signs involving the circulatory and respiratory systems (principal); S92.341A Displaced fracture of fourth metatarsal bone, right foot, initial encounter for closed fracture; M79.671 Pain in right foot; M79.672 Pain in left foot; M10.9 Gout, unspecified; M19.071 Primary osteoarthritis, right ankle and foot; M19.072 Primary osteoarthritis, left ankle and foot; G62.9 Polyneuropathy, unspecified; E55.9 Vitamin D deficiency, unspecified
CPT/HCPCS: 36415; 80053; 82306; 82607; 82746; 84443; 84550; 85025; 85651; 86038; 86140; 86431; 93923

== ENCOUNTER → 2020-07-07 12:10 | Outpatient (CLI) | payer OTHER, SELFPAY ==
[2020-07-07 13:58] LABS: Coronavirus 19 IgG Antibody Positive (Negative)
[2020-07-07 13:59] LABS: Coronavirus 19 IgM Antibody Positive (Negative)
== END ==
LOC: LAB 15:20 → COVID.OUT 15:24
PROVIDERS: PCP Emergency Medicine; Visit Provider Internal Medicine Gastroenterology
DX: Z01.812 Encounter for preprocedural laboratory examination (principal); Z20.822 Contact with and (suspected) exposure to COVID-19; Z86.16 Personal history of COVID-19; Z12.11 Encounter for screening for malignant neoplasm of colon
CPT/HCPCS: 36415; 86328; U0003

== ENCOUNTER 2020-07-08 09:25 | Day surgery (SDC) | payer OTHER, SELFPAY ==
[2020-07-05 14:26] VITALS: BMI 32.7
[2020-07-08] VITALS (9 sets, daily range): BP systolic 106–120; BP diastolic 72–81; PULSE 66–76; RESP 14–18; TEMP 36.3–36.7; O2SAT 92–98
--- NOTE | 2020-07-08 10:17 | HMH.ANESCL ---
[facility] Anesthesia Checklist - Patient Identification Patient Identification: Arm Band - Structural Data Admitted From: Home Planned Operative Procedure/s: Colonoscopy Consent for Planned Operative Procedure(s) Verified: Yes - NPO Status Verified Time NPO: 00:00 - Additional verifications Anesthesia Reactions: No Hx Blood Transfusions: No Blood Transfusion Reaction: No - Airway Assessment Dentition: Poor Dentition - Neurological Assessment Level of Consciousness: Awake - Anesthesia Plan Anesthesia Risk discussed: Yes Anesthesia Plan: Verified ASA Class: II Anesthesia Type: MAC [facility] History I have reviewed the patient's past medical history: Yes Medical History: Reports:: Cancer Denies:: Diabetes Mellitus Type 1, Diabetes Mellitus Type 2, Internal Pacemaker, MRSA, Seizures *Have you ever received a pneumonia vaccine?: Yes *Have you received a flu vaccine this season?: No Other Medical History: Reports: Glaucoma, Other. Denies: Blood Transfusion Reaction Anesthesia experience/problems:: None Other Surgeries: Yes: Cholecystectomy, Colonoscopy, Hernia Repair. No: Pacemaker Amputation: No Fractures: Yes (left wrist,rt wrist,left knee) - *Social History Last grade of school completed: Advanced degree Smoking Status: Current every day smoker Tobacco Type: cigarettes # Packs/Day (cigarettes): 1 Alcohol Intake: never Alcohol Intake Frequency:: holidays/special occasions only Substance Use Type: marijuana *Occupational Status:: unemployed Housing: house Household Members: spouse *Travel in the last 8 weeks: None Family Hx:: Diabetes, Hypertension
--- NOTE | 2020-07-08 10:41 | P.PCN_ITS ---
[facility] Procedure Note Procedure Note:: Colonoscopy Procedure Report: Colonoscopy Endoscopist: Luis Angel Perez II, MD Referring physician: Deniz Ellis MD Date of Procedure: July 08, 2020 Equipment: Olympus 190 variable stiffness pediatric colonoscope Sedation: MAC sedation Indication: Mr. Graham is a 55-year-old gentleman who is here for screening colonoscopy. He does have some generalized abdominal discomfort. He reports no rectal bleeding, weight loss, change in his bowel habits or family history of colon cancer. He does state that he had a normal colonoscopy 10 years ago (in [place]). Procedure: Prior to the procedure, a history and physical exam was performed, and patient's medications and allergies were reviewed. The risks, benefits and alternatives of the sedation and procedure were discussed with the patient. All questions were answered and informed consent was obtained. The patient was brought to the procedure room. Patient identification and proposed procedure were verified by the physician and the nurse. The patient was placed in a left lateral decubitus position and the scope was passed under direct vision. Throughout the procedure, the patient's blood pressure, pulse, and oxygen saturations were monitored continuously. The colonoscopy was accomplished without difficulty. The patient tolerated the procedure well. Findings: On digital rectal examination there was normal rectal tone. There were no external hemorrhoids. The prostate was 2+, smooth, soft and symmetric without nodules. The colonoscope was introduced through the anal canal to the rectum and advanced to the cecum. The ileocecal valve and appendiceal orifice were identified. The scope was advanced a short distance into the ileum which appeared grossly normal. The scope was then withdrawn into the colon. The cecum, ascending and transverse colon and mucosa were grossly normal. There were scattered diverticuli throughout the descending and sigmoid colon (LEFT colon). There was some haustral edema of the sigmoid colon suggestive of chronic sigmoid diverticulitis. The rectum itself was normal. Upon retroflexion within the rectum there were grade 1-2 internal hemorrhoids. The preparation was excellent throughout with Bee Preparation Score of 9. The cecal time was 10 minutes. Impression: 1. Left-sided diverticulosis with evidence of some chronic sigmoid diverticulitis Plan: I will discussed the findings with the patient and family. I would encourage dietary measures and bulk fiber supplementation. The patient will not require surveillance colonoscopy again for 10 years by ACS guidelines.
--- NOTE | 2020-07-08 10:44 | P.PN_ITS ---
[facility] Anesthesia Record Part I Intake, IV Amount: 200 Estimated blood loss (mL): 0 Urine output (mL): 0 Blood Pressure: 120/81 SaO2: 92 Pulse Rate: 74 Respiratory Rate: 14 Temperature: 97.3 F Patient is:: Drowsy Stable to PACU at:: 10:42
--- NOTE | 2020-07-08 11:52 | P.PN_ITS ---
[facility] Anesthesia Record Part II Discharge Time: 11:38 Destination: Surgical Day Care (OP Surgery) PACU nurse assessment reviewed?: Yes Patient Condition:: Good Anesthesia Complications:: None Swallowing reflex intact?: Yes Cyanosis?: No Blood Pressure: 116/78 Pulse Rate: 76 Temperature: 97.3 F Mental Status: Alert & Oriented Pain level:: 0 Nausea and/or vomitting:: None Intake, IV Amount: 200
== END 2020-07-08 11:47 | disposition home or self-care (01) ==
LOC: OUTP 09:26
PROVIDERS: PCP Emergency Medicine; Visit Provider Internal Medicine Gastroenterology
PROC: 0DJD8ZZ Inspection of Lower Intestinal Tract, Via Natural or Artificial Opening Endoscopic (ICD-10-PCS; CPT 45378; principal; 2020-07-08 10:30)
DX: Z12.11 Encounter for screening for malignant neoplasm of colon (principal); K57.30 Diverticulosis of large intestine without perforation or abscess without bleeding; K57.32 Diverticulitis of large intestine without perforation or abscess without bleeding; Z85.9 Personal history of malignant neoplasm, unspecified; F12.90 Cannabis use, unspecified, uncomplicated; Z79.899 Other long term (current) drug therapy; Z82.49 Family history of ischemic heart disease and other diseases of the circulatory system; Z83.3 Family history of diabetes mellitus; Z88.6 Allergy status to analgesic agent
CPT/HCPCS: 45378

== ENCOUNTER → 2020-07-15 17:09 | Outpatient (CLI) | payer OTHER, SELFPAY ==
[2020-07-15 18:09] LABS: Amphetamine/Metha Screen,Urine Negative ng/ml (<1000); Barbiturates Screen,Urine Negative ng/ml (<200)
[2020-07-15 18:10] LABS: Benzodiazepines Screen,Urine Negative ng/ml (<200)
[2020-07-15 18:11] LABS: Cannabinoid Screen,Urine Positive ng/ml (<50); Cocaine Screen,Urine Negative ng/ml (<300)
[2020-07-15 18:12] LABS: Methadone Screen,Urine Negative ng/ml (<300)
[2020-07-15 18:13] LABS: Opiate Screen,Urine Positive ng/ml (<300); Phencyclidine Screen,Urine Negative ng/ml (<25)
== END ==
PROVIDERS: Visit Provider Emergency Medicine
DX: M50.30 Other cervical disc degeneration, unspecified cervical region (principal)
CPT/HCPCS: 80305

== ENCOUNTER → 2020-07-18 09:25 | Outpatient (CLI) | payer OTHER, SELFPAY ==
--- NOTE | 2020-07-18 09:28 | XR_ITS ---
PROCEDURE: XR KNEE RT 4V CLINICAL INDICATION: rt knee pain COMPARISON: No exams were available for comparison FINDINGS: No fracture or dislocation. No lytic or blastic change. There is normal mineralization. Mild osteoarthritic changes are present at the medial compartment and patellofemoral joint. There is some mild spurring of the distal femur at the intercondylar notch. Other findings:None. IMPRESSION: Mild osteoarthritis Dictated by: Mango Mims MD 07/18/2020 10:16 Mango Mims MD in [place] 07/18/2020 10:16
== END ==
PROVIDERS: PCP Emergency Medicine; Visit Provider Orthopaedic Surgery
DX: M25.561 Pain in right knee (principal)
CPT/HCPCS: 73564

== ENCOUNTER → 2020-07-29 07:47 | Outpatient (CLI) | payer OTHER, SELFPAY ==
--- NOTE | 2020-07-29 07:48 | MR_ITS ---
PROCEDURE: MR KNEE RT WO CON CLINICAL INDICATION: RT knee pain Knee pain x1yr. No injury/trauma. Medial sided knee pain. Knee instability. COMPARISON: CR XR KNEE RT 4V from 07/18/2020 TECHNIQUE: Routine multiplanar multi echo sequences are performed without gadolinium enhancement. FINDINGS: The cruciate ligaments appear intact. There is some fluid signal intensity noted medial to the medial collateral ligament with a suspected focal area of discontinuity along the posterior aspect of the MCL centrally. Fibers of the MCL proximally appear to be with fluid between the fibers. The patellar tendon and quadriceps tendon appear intact. Complex tear involves the mid aspect of the body of the medial meniscus extending slightly posteriorly. The anterior horn of the medial meniscus is extruded medially. There is a small knee joint effusion. Mild osteoarthritic changes are present involving all 3 compartments worse at the medial compartment. There is some mild bone marrow edema along the medial aspect of the proximal tibia anteriorly and may be due to bone bruise. Subchondral cystic changes are present involving the medial femoral condyle. There is some minimal irregularity of the posterior surface of the patellar cartilage. There is a small knee joint effusion. IMPRESSION: 1. Complex tear involves the body of the medial meniscus extending slightly posteriorly. 2. Partial tear of the medial collateral ligament. 3. Osteoarthritic changes worse at the medial compartment. The anterior horn of the medial meniscus is extruded medially. 4. Mild bone marrow edema of the proximal tibia medially and anteriorly and may be related to bone bruise or edema from arthritic changes with inflammation. Dictated by: Mango Mims MD 08/01/2020 12:14 Mango Mims MD in [place] 08/01/2020 12:14
== END ==
PROVIDERS: PCP Emergency Medicine; Visit Provider Orthopaedic Surgery
DX: M17.11 Unilateral primary osteoarthritis, right knee (principal)
CPT/HCPCS: 73721

== ENCOUNTER → 2020-08-08 08:32 | Outpatient (CLI) | payer OTHER, SELFPAY ==
--- NOTE | 2020-08-08 08:38 | XR_ITS ---
PROCEDURE: XR FOOT WT BEARING RT 3V CLINICAL INDICATION: foot pain COMPARISON: CR XR FOOT WT BEARING RT 3V from 06/09/2020 CR XR FOOT WT BEARING LT 3V from 06/09/2020 FINDINGS: No acute fracture or dislocation. No lytic or blastic change. There is minimal cortical thickening involving the mid shaft of the 4th metatarsal medially possibly due to stress reaction not significantly changed. There are mild degenerative changes the tarsal bones. Lucency is present involving the posterior aspect of the talus and may be due to subchondral cyst. What appears represent an os trigonum is noted also with a somewhat irregular contour. Osteochondral defect of the talus with osteochondral fragment is also a consideration but felt to be less likely.. CT of the ankle may provide further evaluation. Small calcaneal spur IMPRESSION: Irregular lucency of the posterior talus which may be due to subchondral cyst with somewhat irregular os trigonum. Not significantly changed. CT may further evaluate. Possible stress reaction 4th metatarsal Dictated by: Mango Mims MD 08/09/2020 05:58 Mango Mims MD in [place] 08/09/2020 05:58
== END ==
PROVIDERS: PCP Emergency Medicine; Visit Provider Podiatrist
DX: M79.671 Pain in right foot (principal)
CPT/HCPCS: 73630

== ENCOUNTER → 2020-08-10 18:05 | Outpatient (CLI) | payer OTHER, SELFPAY ==
[2020-08-10 19:15] LABS: Amphetamine/Metha Screen,Urine Negative ng/ml (<1000)
[2020-08-10 19:16] LABS: Barbiturates Screen,Urine Negative ng/ml (<200); Benzodiazepines Screen,Urine Negative ng/ml (<200)
[2020-08-10 19:17] LABS: Cannabinoid Screen,Urine Positive ng/ml (<50); Cocaine Screen,Urine Negative ng/ml (<300)
[2020-08-10 19:18] LABS: Methadone Screen,Urine Negative ng/ml (<300)
[2020-08-10 19:19] LABS: Opiate Screen,Urine Negative ng/ml (<300); Phencyclidine Screen,Urine Negative ng/ml (<25)
== END ==
PROVIDERS: Visit Provider Emergency Medicine
DX: Z79.899 Other long term (current) drug therapy (principal)
CPT/HCPCS: 80305

== ENCOUNTER → 2020-08-26 08:10 | Outpatient (CLI) | payer OTHER, SELFPAY ==
--- NOTE | 2020-08-26 08:36 | CT_ITS ---
PROCEDURE: CT ANGIO ABDOMEN/FEMORAL CLINICAL INDICATION: eval for PAD/right leg pain COMPARISON: No exams were available for comparison TECHNIQUE: CT angiography of the abdomen and pelvis with multiplanar 3D MIP reformations. Dose modulation, automated exposure control, and/or iterative reconstruction were used for dose reduction. Contrast: 100 ML of Isovue 370 FINDINGS: VASCULAR: Aorta:Minor atherosclerotic vascular calcification of the visualized abdominal aorta is noted without evidence of aneurysm or significant stenosis. Iliacs: The bilateral common iliac arteries, demonstrates atheromatous calcification normal in caliber. Branches: The inferior mesenteric artery is unremarkable. The celiac trunk, SMA and renal arteries are not included in the study. Right: The right common femoral, superficial femoral, and popliteal arteries are unremarkable. The anterior, posterior tibial and peroneal arteries demonstrate no segment demonstrate bowel flow below the level of mid calf. Left: The left common femoral, superficial femoral, popliteal, anterior tibial, posterior tibial and peroneal arteries demonstrate minor atherosclerotic vascular calcification. There is no demonstrable flow in the distal peroneal artery. The anterior tibial and posterior tibial arteries demonstrate flow up to the level of the ankle. The upper abdominal solid organs are not visualized on the current study. The visualized kidneys demonstrate no focal abnormality. Postsurgical changes of the anterior abdominal wall. Few colonic diverticula without evidence of diverticulitis in the sigmoid colon. The visualized large and small bowel loops demonstrate no focal wall thickening, obstruction or adjacent inflammatory changes. Postsurgical changes of the anterior abdominal wall noted. The prostate gland is enlarged and appears demonstrates calcification. Fat containing left inguinal hernia is noted. There is small amount of fluid noted in the right inguinal region. Minor degenerative changes of the visualized lumbar spine and bilateral hip joints. IMPRESSION: No demonstrable flow in the right lower extremity vessels below the level of mid calf, concerning for occlusion. Two vessel runoff to the ankle on the left. Other chronic findings in the visualized abdomen and pelvis as described above. Dictated by: Joanie Rivers 08/26/2020 13:56 Joanie Rivers in [place] 08/26/2020 13:56
[2020-08-26 08:41] LABS: Basophils # 0.1 K/mm3 (0-0.2); Basophils % 0.8 % (0.1-2.0); Eosinophils # 0.2 K/mm3 (0.0-0.4); Eosinophils % 2.8 % (0.1-12.0); Hemoglobin 14.6 g/dL (14.1-18.0); Lymphocytes # 2.8 K/mm3 (0.7-4.5); Lymphocytes % 38.3 % (10-50); Mean Corpuscular HGB Conc 32.4 g/dL (31.8-35.4); Mean Corpuscular Hemoglobin 29.5 pg (27.0-31.2); Mean Corpuscular Volume 90.8 fl (80-94); Monocytes # 0.5 K/mm3 (0.1-1.0); Neutrophils # 3.7 K/mm3 (1.8-7.8); Neutrophils % 51.1 % (37.0-80.0); Platelet Count 266 K/mm3 (142-424); Red Blood Count 4.96 M/mm3 (4.60-6.20); Red Cell Distribution Width 13.3 % (11.5-17.5); White Blood Count 7.3 K/mm3 (4.8-10.8)
[2020-08-26 08:45] LABS: Anion Gap 5.8 mEq/L (5-15); Blood Urea Nitrogen 27 mg/dl (9-20); Calcium 9.2 mg/dl (8.4-10.2); Carbon Dioxide 30 mmol/L (22.0-30.0); Chloride 106 mmol/L (98-107); Estimated Glomerular Filt Rate 88 ml/min (>60); GFR (African American) 106 ML/MIN (>60); Glucose 107 mg/dl (74-100); Potassium 3.8 mmoL/L (3.5-5.1); Sodium 138 mmol/L (136-145)
== END ==
PROVIDERS: PCP Emergency Medicine; Visit Provider Internal Medicine Cardiovascular Disease
DX: Z01.810 Encounter for preprocedural cardiovascular examination (principal); M79.604 Pain in right leg; M25.561 Pain in right knee; I73.9 Peripheral vascular disease, unspecified; R68.89 Other general symptoms and signs; I10 Essential (primary) hypertension; Z72.0 Tobacco use; Z87.898 Personal history of other specified conditions
CPT/HCPCS: 36415; 75635; 80048; 85025; Q9967

== ENCOUNTER → 2020-08-29 07:09 | Outpatient (CLI) | payer OTHER, SELFPAY ==
--- NOTE | 2020-08-29 07:09 | NM_ITS ---
APPROVED REPORT Exam: Nuclear Stress Test Indication: Chest pain, Pre op, Tobacco use, Family history Patient Location: Outpatient Stress Tech: Yoly Leyva [place] Tech:Garima De Luna, ARRT, RT (R)(N) Ht: 6 ft 2 in Wt: 255 lbs HR: 64 bpm BP: 126/81 mmHg BSA: 2.41 m2 BMI: 32.7 History: Chest pain, Pre op, Tobacco use, Family history Procedure: Patient received a 0.4 mg of intravenous Lexiscan, resting heart rate 64 bpm, resting blood pressure 126/81 mmHg, with Lexiscan maximum heart rate achived was 83 bpm which is Less than 85% % of the maximum predicted heart rate and blood pressure was 123/79 mmHg. With Lexiscan, patient denied any complaint of chest pain. Electrocardiogram Resting electrocardiogram showed sinus rhythm, with Lexiscan there is less than 1.[address] segment depression noted from the baseline EKG. The EKG portion of the Lexiscan is nondiagnostic. Cardiac Stress and Resting SPECT Images: Cardiac Stress and Resting SPECT images were obtained using technetium 99m Myoview 29.1 mCi stress and 10.14 mCi at rest. Gated SPECT for analysis of segmental wall motion and calculation of the ejection fraction also done. Prone images were also obtained. Cardiac stress and resting SPECT images show of partial fixed defect involving the inferior wall consistent with nontransmural myocardial scarring, without significant iker-infarct ischemia, computer derived ejection fraction is 46% with moderate inferior wall hypokinesis, there is transient ischemic dilatation of the left ventricle seen, raising the concerns for presence of multivessel coronary disease. Conclusion: 1. The EKG portion of the Lexiscan is nondiagnostic. 2. Scintigraphic evidence of myocardial scarring involving the inferior wall without significant iker-infarct ischemia, there is transient ischemic dilatation of the left ventricle seen, raising the concerns for presence of multivessel coronary artery disease. 3. Abnormal Lexiscan Myoview study. Electronically signed by : Mat Ferrell, 08/29/2020 19:12:50
--- NOTE | 2020-08-29 09:36 | HMH.ITSHM ---
Current Home Medications as stated by this patient Sajan Graham or patient admitting representative. []MELOXICAM INDOMETHACIN HYDROCODONE CYCLOBENZAPRINE COLCHICINE GABAPENTIN
--- NOTE | 2020-08-29 09:45 | CA_ITS ---
APPROVED REPORT EXAM: Comprehensive 2D, Doppler, and color-flow Echocardiogram Mission Commander: Ernestina Mendez CRT Ht: 6 ft 2 in Wt: 265lbs BSA: 2.45 BP: 155/87 mmHg Indications: Chest Pain, pre-op knee 2D Dimensions LVOT 1.90 cm (M/F) 1.5-2.5 LVEF (White's) 63.00 % LV Volume 110.00 mL LA Volume 85.00 mL LA Volume Index 34.70 mL/m2 (M/F) 16-34 M-Mode Dimensions RVDd 3.30 cm (0.9-2.6) LA Diam 4.10 cm (1.9-4.0) LVDd 4.90 cm (3.5-5.7) Ao Diam 4.50 cm (2.0-3.7) LVDs 3.50 cm (3.5-5.7) AV Cusp 2.40 cm (1.5-2.6) IVSd 2.00 cm (0.6-1.1) PWd 0.80 cm (0.6-1.1) EF (Teich) 55.00% FS 28.60% EDV (Teich) 113.00 mL ESV (Teich) 50.90 mL LV Diastology E/A Ratio 1.40 MED E' 7.41 (< 7 cm/sec) MED A' 9.16 cm/s E'/MED E' Ratio 11.60 (>14) LAT E' 11.90 (<10 cm/sec) LAT A' 14.80 cm/s E/LAT E' Ratio 7.20 (>14) Aortic Valve AoV Peak Guerrero. 141.00 (50-130 cm/s) AI PHT 688.00 ms AO Peak GR. 8.00 mmHg Mitral Valve MV E Max Guerrero. 85.90 (40-130 cm/s) MV A Velocity 59.70 (40-130 cm/s) E/A Ratio 1.40 Pulmonary Valve TN End VMAX 22.80 cm/s PA Accel Time 85.00 (>120 msec) Tricuspid Valve TR P. Velocity 188.00 cm/s RAP Estimate 10.00 mmHg RVSP 24.00 mmHg Left Ventricle Left atrium is normal size, left ventricle is normal size, left ventricle wall thickness is upper limit of the normal, visually estimated ejection fraction 50%, there is mild inferior wall hypokinesis. Diastolic parameters are inconclusive. Right Ventricle Right atrium and right ventricle are normal size and contractility. Aortic Valve Aortic valve is minimally thickened and fibrosed, there is no aortic stenosis, there is trace aortic insufficiency. Mitral Valve Mitral valve is grossly normal, there is trace mitral regurgitation. Tricuspid Valve Tricuspid grossly normal, there is trace tricuspid regurgitation, tricuspid regurgitation jet velocity is inadequate for calculation of the right ventricular systolic pressure. Pulmonic Valve Pulmonic valve is poorly visualized. Great Vessels Aortic root is normal size. Pericardium No significant pericardial effusion noted. Conclusion 1. Normal left ventricular size, visually estimated ejection fraction 50% with segmental wall motion abnormality described above, endocardial surfaces are poorly visualized. 2. Trace mitral and tricuspid regurgitation. 3. No significant pericardial effusion noted. Electronically signed by : Mat Ferrell, 08/29/2020 19:37:28
--- NOTE | 2020-08-29 09:49 | CA_ITS ---
APPROVED REPORT Exam: Pharmacologic Technologist: Yoly Leyva, Ht: 6 ft 2 in Wt: 265 lbs BSA: 2.45 m2 HR: 64 bpm BP: 126/81 mmHg Medical History Medications: Gabapentin,,,,, MeLOXICAM,,,,, INdomethacin,,,,, ColCHIcine,,,,, CyclobenAPRINE,,,,, Stress Test Details Test: LEXISCAN HR Resting HR: 62 bpm Max Heart Rate (APMHR): 165.293292 bpm Max HR Achieved: 84 bpm Target HR (85% APMHR): 140.342894 bpm % of APMHR: 50.91 Recovery HR: 65 bpm BP Resting BP: 126/81 mmHg Max BP: 142/83 mmHg Recovery BP: 138.0/88.0 mmHg ECG Clinical Exercise duration: 04:00 min Highest Stage Achieved: Stress ECG Conclusion Symptoms: None Arrhythmias/Ectopy: None ST-T Changes: less than 1.5mm ST segment changes Test Summary REST . . . . . . . Resting REST 06:15 . . 62 . 126/ 81 . . Stage 1 . . . . . . . Cardiolite injected Stage 1 01:00 . . 79 . . . . Stage 2 01:00 . . 80 . 123/ 79 . . Stage 3 01:00 . . 73 . 131/ 79 . . Stage 4 01:00 . . 68 . 126/ 81 . Stop exercise at 04:00 RECOVERY 01:00 . . 76 . . . . RECOVERY 02:00 . . 72 . 142/ 83 . . RECOVERY 03:00 . . 70 . 142/ 83 . . RECOVERY 03:42 . . 63 . 138/ 88 . . Electronically signed by : Mat Ferrell, 08/29/2020 19:00:54
== END ==
PROVIDERS: PCP Emergency Medicine; Visit Provider Internal Medicine Cardiovascular Disease
DX: Z01.810 Encounter for preprocedural cardiovascular examination (principal); I73.9 Peripheral vascular disease, unspecified; I10 Essential (primary) hypertension; M25.561 Pain in right knee; M79.604 Pain in right leg; R68.89 Other general symptoms and signs; Z72.0 Tobacco use; Z87.898 Personal history of other specified conditions
CPT/HCPCS: 78452; 93017; 93306; A9502; J2785

== ENCOUNTER → 2020-09-05 16:18 | Outpatient (CLI) | payer OTHER, SELFPAY ==
[2020-09-05 16:35] LABS: Basophils # 0.1 K/mm3 (0-0.2); Basophils % 0.6 % (0.1-2.0); Eosinophils # 0.2 K/mm3 (0.0-0.4); Eosinophils % 2.6 % (0.1-12.0); Hematocrit 42.9 % (42.0-52.0); Hemoglobin 14.5 g/dL (14.1-18.0); Lymphocytes # 3.2 K/mm3 (0.7-4.5); Mean Corpuscular HGB Conc 33.7 g/dL (31.8-35.4); Mean Corpuscular Hemoglobin 29.7 pg (27.0-31.2); Mean Corpuscular Volume 88.2 fl (80-94); Mean Platelet Volume 7.1 fl (7.4-10.4); Monocytes # 0.6 K/mm3 (0.1-1.0); Monocytes % 6.7 % (1.7-9.3); Neutrophils # 4.3 K/mm3 (1.8-7.8); Platelet Count 294 K/mm3 (142-424); Red Blood Count 4.86 M/mm3 (4.60-6.20); White Blood Count 8.3 K/mm3 (4.8-10.8)
[2020-09-05 17:51] LABS: Blood Urea Nitrogen 17 mg/dl (9-20); Calcium 9.5 mg/dl (8.4-10.2); Carbon Dioxide 29 mmol/L (22.0-30.0); Chloride 106 mmol/L (98-107); Estimated Glomerular Filt Rate 88 ml/min (>60); GFR (African American) 106 ML/MIN (>60); Glucose 97 mg/dl (74-100); Sodium 141 mmol/L (136-145)
== END ==
PROVIDERS: Visit Provider Internal Medicine Cardiovascular Disease
DX: I20.9 Angina pectoris, unspecified (principal); R06.00 Dyspnea, unspecified; Z01.812 Encounter for preprocedural laboratory examination; Z11.52 Encounter for screening for COVID-19; R94.39 Abnormal result of other cardiovascular function study; R94.31 Abnormal electrocardiogram [ECG] [EKG]; E66.9 Obesity, unspecified; I10 Essential (primary) hypertension; Z72.0 Tobacco use; Z87.898 Personal history of other specified conditions
CPT/HCPCS: 36415; 80048; 85025; U0003

== ENCOUNTER 2020-09-06 07:53 | Day surgery (SDC) | payer OTHER, SELFPAY ==
[2020-09-06] VITALS (10 sets, daily range): BP systolic 90–159; BP diastolic 57–103; PULSE 54–60; RESP 17–20; TEMP 36.6; O2SAT 90–98; BMI 33.9
--- NOTE | 2020-09-06 07:08 | IR_ITS ---
APPROVED REPORT Patient Location: Outpatient PROCEDURES Left heart catheterization Left ventriculogram Selective coronary angiogram INDICATION Abnormal Myoview, Angina pectoris Informed consent was obtained prior to the procedure. COMPLICATIONS NONE Estimated Blood Loss: LESS THAN 10 ML TECHNIQUE One percent lidocaine used to anesthetize the right anterior aspect of the wrist. The right radial artery was accessed via the Seldinger technique. A 6 [place] sheath was placed in the right radial artery. 2.5 mg of verapamil, 800 mcg of nitroglycerin, 1mg Lidocaine and 5000 U Heparin were given through the arterial sheath. The trap catheter was also used to perform left heart catheterization, left ventriculogram and selective coronary angiogram. At the end of the procedure the sheath was removed good hemostasis was achieved using Traclet band, patient was transferred to the postop holding area in stable condition. ANGIOGRAPHIC RESULTS The left main artery Normal The left anterior descending artery Has proximal and mid vessel eccentric 20% stenoses The circumflex artery Nondominant with mild 10% luminal irregularities The right coronary artery Dominant with proximal and mid vessel 10 to 20% stenosis The HUITRON ventriculogram reveals Preserved 60% with dilated ventricle The left ventricular end-diastolic pressure 15 mmHg IMPRESSION Mild nonflow limiting coronary disease Dilated ventricle with preserved ejection fraction Mildly elevated LVEDP PLAN 1. Continue medical management for coronary disease and mild diastolic dysfunction Electronically signed by : Elmer Taveras, 09/06/2020 09:32:51
== END 2020-09-06 11:53 | disposition home or self-care (01) ==
LOC: CATHLAB 07:54
PROVIDERS: PCP Emergency Medicine; Visit Provider Internal Medicine
DX: I25.118 Atherosclerotic heart disease of native coronary artery with other forms of angina pectoris (principal); I10 Essential (primary) hypertension; E66.9 Obesity, unspecified; Z87.898 Personal history of other specified conditions; I73.9 Peripheral vascular disease, unspecified; F17.210 Nicotine dependence, cigarettes, uncomplicated; Z71.6 Tobacco abuse counseling; M10.9 Gout, unspecified; Z68.33 Body mass index [BMI] 33.0-33.9, adult
CPT/HCPCS: 93458; 99152; C1725; C1760; C1769; J1644; Q9967

== ENCOUNTER → 2020-10-07 13:57 | Outpatient (CLI) | payer OTHER, SELFPAY ==
[2020-10-07 15:23] LABS: Amphetamine/Metha Screen,Urine Negative ng/ml (<1000)
[2020-10-07 15:24] LABS: Barbiturates Screen,Urine Negative ng/ml (<200); Benzodiazepines Screen,Urine Negative ng/ml (<200)
[2020-10-07 15:25] LABS: Cannabinoid Screen,Urine Positive ng/ml (<50); Cocaine Screen,Urine Negative ng/ml (<300)
[2020-10-07 15:26] LABS: Methadone Screen,Urine Negative ng/ml (<300)
[2020-10-07 15:27] LABS: Opiate Screen,Urine Positive ng/ml (<300)
[2020-10-07 15:28] LABS: Phencyclidine Screen,Urine Negative ng/ml (<25)
== END ==
PROVIDERS: Visit Provider Emergency Medicine
DX: Z79.899 Other long term (current) drug therapy (principal)
CPT/HCPCS: 80305

== ENCOUNTER → 2020-12-02 15:29 | Outpatient (CLI) | payer OTHER, SELFPAY ==
[2020-12-02 17:09] LABS: Benzodiazepines Screen,Urine Negative ng/ml (<200)
[2020-12-02 17:10] LABS: Amphetamine/Metha Screen,Urine Negative ng/ml (<1000)
[2020-12-02 17:11] LABS: Barbiturates Screen,Urine Negative ng/ml (<200); Cocaine Screen,Urine Negative ng/ml (<300)
[2020-12-02 17:12] LABS: Methadone Screen,Urine Negative ng/ml (<300)
[2020-12-02 17:13] LABS: Cannabinoid Screen,Urine Positive ng/ml (<50); Opiate Screen,Urine Negative ng/ml (<300)
[2020-12-02 17:14] LABS: Phencyclidine Screen,Urine Negative ng/ml (<25)
== END ==
PROVIDERS: Visit Provider Emergency Medicine
DX: M50.30 Other cervical disc degeneration, unspecified cervical region (principal)
CPT/HCPCS: 80305

== ENCOUNTER → 2021-02-01 16:08 | Outpatient (CLI) | payer OTHER, SELFPAY ==
[2021-02-01 17:08] LABS: Amphetamine/Metha Screen,Urine Negative ng/ml (<1000); Barbiturates Screen,Urine Negative ng/ml (<200)
[2021-02-01 17:09] LABS: Benzodiazepines Screen,Urine Negative ng/ml (<200)
[2021-02-01 17:10] LABS: Cannabinoid Screen,Urine Positive ng/ml (<50); Cocaine Screen,Urine Negative ng/ml (<300)
[2021-02-01 17:11] LABS: Methadone Screen,Urine Negative ng/ml (<300)
[2021-02-01 17:12] LABS: Opiate Screen,Urine Positive ng/ml (<300); Phencyclidine Screen,Urine Negative ng/ml (<25)
== END ==
PROVIDERS: Visit Provider Emergency Medicine
DX: Z79.899 Other long term (current) drug therapy (principal)
CPT/HCPCS: 80305

== ENCOUNTER → 2021-03-17 09:42 | Outpatient (CLI) | payer OTHER, SELFPAY | PROVIDERS: PCP Emergency Medicine; Visit Provider Internal Medicine Cardiovascular Disease | DX: R00.2 Palpitations (principal) | CPT/HCPCS: 93270 ==

== ENCOUNTER → 2021-03-29 14:43 | Outpatient (CLI) | payer OTHER, SELFPAY ==
[2021-03-29 17:01] LABS: Amphetamine/Metha Screen,Urine Negative ng/ml (<1000)
[2021-03-29 17:02] LABS: Barbiturates Screen,Urine Negative ng/ml (<200)
[2021-03-29 17:03] LABS: Benzodiazepines Screen,Urine Negative ng/ml (<200); Cannabinoid Screen,Urine Positive ng/ml (<50)
[2021-03-29 17:04] LABS: Cocaine Screen,Urine Negative ng/ml (<300)
[2021-03-29 17:05] LABS: Methadone Screen,Urine Negative ng/ml (<300); Opiate Screen,Urine Positive ng/ml (<300)
[2021-03-29 17:06] LABS: Phencyclidine Screen,Urine Negative ng/ml (<25)
== END ==
PROVIDERS: Visit Provider Emergency Medicine
DX: M50.30 Other cervical disc degeneration, unspecified cervical region (principal)
CPT/HCPCS: 80305

== ENCOUNTER → 2021-05-29 16:00 | Outpatient (CLI) | payer OTHER, SELFPAY ==
[2021-05-29 14:35] LABS: Amphetamine/Metha Screen,Urine Negative ng/ml (<1000)
[2021-05-29 14:37] LABS: Barbiturates Screen,Urine Negative ng/ml (<200)
[2021-05-29 14:38] LABS: Benzodiazepines Screen,Urine Negative ng/ml (<200); Cannabinoid Screen,Urine Positive ng/ml (<50)
[2021-05-29 14:39] LABS: Cocaine Screen,Urine Negative ng/ml (<300)
[2021-05-29 14:40] LABS: Methadone Screen,Urine Negative ng/ml (<300); Opiate Screen,Urine Negative ng/ml (<300)
[2021-05-29 14:41] LABS: Phencyclidine Screen,Urine Negative ng/ml (<25)
== END ==
PROVIDERS: Visit Provider Emergency Medicine
DX: Z79.899 Other long term (current) drug therapy (principal)
CPT/HCPCS: 80305

== ENCOUNTER → 2021-05-30 17:39 | Outpatient (CLI) | payer OTHER, SELFPAY | PROVIDERS: PCP Emergency Medicine; Visit Provider Internal Medicine Pulmonary Disease | DX: G47.33 Obstructive sleep apnea (adult) (pediatric) (principal) | CPT/HCPCS: 95806 ==

== ENCOUNTER → 2021-07-24 12:49 | Outpatient (CLI) | payer OTHER, SELFPAY ==
[2021-07-24 13:40] VITALS: PULSE 66; PULSE 73
--- NOTE | 2021-07-24 14:08 | CT_ITS ---
FINAL REPORT CLINICAL HISTORY: former smoker. quit 4 months ago. smoked 1/2 ppd for 25 years. no other symptoms FINDINGS: CTDI vol (mGy): 2.[address] images of the chest were obtained using the low-dose protocol for screening. Moderate vascular calcifications are seen of the coronary arteries. There is no evidence of mediastinal or hilar mass or adenopathy. No axillary mass or adenopathy is identified. On the lung window images, no pulmonary mass or suspicious nodule is identified. IMPRESSION: Lung RADS category 1 . Recommend 12 month followup low-dose CT for further evaluation. Reviewed, Interpreted and Dictated by Benjie Schuster MD Transcribed by Elyse Aguilera Authenticated by Benjie Schuster MD on 07/24/2021 04:17:26 PM [facility]
== END ==
PROVIDERS: PCP Emergency Medicine; Visit Provider Internal Medicine Pulmonary Disease
DX: Z87.891 Personal history of nicotine dependence (principal); Z12.2 Encounter for screening for malignant neoplasm of respiratory organs; R06.00 Dyspnea, unspecified
CPT/HCPCS: 71271; 94060; 94618; 94640; 94727; 94729

== ENCOUNTER → 2021-07-25 16:11 | Outpatient (CLI) | payer OTHER, SELFPAY ==
[2021-07-25 18:05] LABS: Basophils # 0.2 K/mm3 (0-0.2); Basophils % 1.6 % (0.1-2.0); Eosinophils # 0.2 K/mm3 (0.0-0.4); Hematocrit 46.9 % (42.0-52.0); Hemoglobin 15.3 g/dL (14.1-18.0); Lymphocytes # 3.1 K/mm3 (0.7-4.5); Lymphocytes % 29.9 % (10-50); Mean Corpuscular HGB Conc 32.6 g/dL (31.8-35.4); Mean Corpuscular Hemoglobin 31.2 pg (27.0-31.2); Mean Corpuscular Volume 95.6 fl (80-94); Mean Platelet Volume 9.1 fl (7.4-10.4); Monocytes # 0.7 K/mm3 (0.1-1.0); Monocytes % 6.8 % (1.7-9.3); Neutrophils # 6.1 K/mm3 (1.8-7.8); Neutrophils % 59.7 % (37.0-80.0); Platelet Count 402 K/mm3 (142-424); Red Blood Count 4.91 M/mm3 (4.60-6.20); White Blood Count 10.3 K/mm3 (4.8-10.8)
[2021-07-25 18:31] LABS: Alanine Aminotransferase 35 U/L (12-78); Albumin Level 4.3 g/dl (3.5-5.0); Albumin/Globulin Ratio 1.5 (1.1-1.8); Alkaline Phosphatase 46 U/L (38-126); Anion Gap 12.1 mEq/L (5-15); Aspartate Amino Transferase 30 U/L (17-59); Bilirubin,Total 0.4 mg/dl (0.2-1.3); Blood Urea Nitrogen 19 mg/dl (9-20); Calcium 9.2 mg/dl (8.4-10.2); Carbon Dioxide 26 mmol/L (22.0-30.0); Chloride 105 mmol/L (98-107); Chol/HDL Ratio 5.1 (1-3.5); Cholesterol 172 mg/dl (140-200); Estimated Glomerular Filt Rate 117 ml/min (>60); GFR (African American) 141 ML/MIN (>60); Globulin 2.8 g/dL (1.3-3.2); Glucose 123 mg/dl (74-100); HDL Cholesterol 34 mg/dl (40-60); Potassium 4.1 mmoL/L (3.5-5.1); Sodium 139 mmol/L (136-145); Total Protein,Serum 7.1 g/dl (6.3-8.2); Triglycerides 133 mg/dl (30-150); VLDL Cholesterol 27 mg/dL (0-40)
[2021-07-25 18:34] LABS: Amphetamine/Metha Screen,Urine Negative ng/ml (<1000); Barbiturates Screen,Urine Negative ng/ml (<200)
[2021-07-25 18:36] LABS: Benzodiazepines Screen,Urine Negative ng/ml (<200)
[2021-07-25 18:37] LABS: Cannabinoid Screen,Urine Positive ng/ml (<50)
[2021-07-25 18:38] LABS: Cocaine Screen,Urine Negative ng/ml (<300); Methadone Screen,Urine Negative ng/ml (<300)
[2021-07-25 18:39] LABS: Opiate Screen,Urine Negative ng/ml (<300); Phencyclidine Screen,Urine Negative ng/ml (<25)
[2021-07-25 18:43] LABS: Direct LDL Cholesterol 107.87 mg/dL (100-129)
[2021-07-25 18:49] LABS: Free T4 (Free Thyroxine) 1.16 ng/dl (0.78-2.19)
[2021-07-25 18:51] LABS: 25-OH Vitamin D, Total 19.8 ng/mL (30-100)
[2021-07-25 19:03] LABS: Prostate Specific Ag Screen 3.6 ng/ml (0.0-4.0); Thyroid Stimulating Hormone 1.67 uIU/mL (0.465-4.68)
== END ==
PROVIDERS: Visit Provider Emergency Medicine
DX: I25.10 Atherosclerotic heart disease of native coronary artery without angina pectoris (principal); I10 Essential (primary) hypertension; R53.83 Other fatigue; Z79.899 Other long term (current) drug therapy; Z12.5 Encounter for screening for malignant neoplasm of prostate; E55.9 Vitamin D deficiency, unspecified
CPT/HCPCS: 80053; 80061; 80305; 82306; 84439; 84443; 85025; G0103

== ENCOUNTER → 2021-08-01 14:04 | Outpatient (CLI) | payer OTHER, SELFPAY ==
--- NOTE | 2021-08-01 14:13 | XR_ITS ---
FINAL REPORT CLINICAL HISTORY: knee pain, chronic COMPARISON: July 18, 2020 FINDINGS: RIGHT KNEE 4 views of the right knee were obtained. There is no acute fracture or dislocation. There are mild to moderate degenerative changes. There is medial compartment narrowing. Findings are not significantly changed from prior. Soft tissues are unremarkable. IMPRESSION: Stable degenerative changes. Reviewed, Interpreted and Dictated by Jimmy Monsalve III, MD Transcribed by Linda Mcintyre Authenticated by Jimmy Monsalve III, MD on 08/01/2021 03:35:[address] [facility]
--- NOTE | 2021-08-01 14:13 | XR_ITS ---
FINAL REPORT CLINICAL HISTORY: knee pain, chronic FINDINGS: LEFT KNEE 4 views of the left knee were obtained. There is no acute fracture or dislocation. There are mild degenerative changes. Soft tissues are unremarkable. IMPRESSION: Degenerative changes. Reviewed, Interpreted and Dictated by Jimmy Monsalve III, MD Transcribed by Linda Mcintyre Authenticated by Jimmy Monsalve III, MD on 08/01/2021 03:35:19 PM [facility]
== END ==
PROVIDERS: PCP Emergency Medicine; Visit Provider Orthopaedic Surgery
DX: M25.562 Pain in left knee (principal); M17.11 Unilateral primary osteoarthritis, right knee
CPT/HCPCS: 73564

== ENCOUNTER → 2021-09-20 14:17 | Outpatient (CLI) | payer OTHER, SELFPAY ==
[2021-09-20 13:44] LABS: Benzodiazepines Screen,Urine Negative ng/ml (<200)
[2021-09-20 13:45] LABS: Amphetamine/Metha Screen,Urine Negative ng/ml (<1000); Barbiturates Screen,Urine Negative ng/ml (<200)
[2021-09-20 13:46] LABS: Methadone Screen,Urine Negative ng/ml (<300)
[2021-09-20 13:47] LABS: Cannabinoid Screen,Urine Positive ng/ml (<50); Cocaine Screen,Urine Negative ng/ml (<300)
[2021-09-20 13:48] LABS: Opiate Screen,Urine Negative ng/ml (<300); Phencyclidine Screen,Urine Negative ng/ml (<25)
== END ==
PROVIDERS: PCP Emergency Medicine; Visit Provider Emergency Medicine
DX: Z79.899 Other long term (current) drug therapy (principal)
CPT/HCPCS: 80305

== ENCOUNTER 2021-10-23 16:20 | Emergency (ER) | payer OTHER, SELFPAY ==
[2021-10-23] VITALS (7 sets, daily range): BP systolic 111–119; BP diastolic 70–84; PULSE 58–74; RESP 16–20; TEMP 37; O2SAT 95–97; BMI 30.8
--- NOTE | 2021-10-23 16:35 | PC.NURSE ---
ED MD AT BEDSIDE FOR ASSESSMENT
--- NOTE | 2021-10-23 16:37 | XR_ITS ---
PROCEDURE INFORMATION: Exam: XR Chest Exam date and time: 10/23/2021 4:41 PM Age: 56 years old Clinical indication: Cough and shortness of breath; Additional info: Cough, SOB possible covid TECHNIQUE: Imaging protocol: Radiologic exam of the chest. Views: 1 view. COMPARISON: CR XR CHEST 2V 02/20/2020 7:47 PM FINDINGS: Lungs: Unremarkable. No consolidation. Pleural spaces: Unremarkable. No pleural effusion. No pneumothorax. Heart/Mediastinum: Unremarkable. No cardiomegaly. Bones/joints: Unremarkable. IMPRESSION: No acute findings.
[2021-10-23 16:41] LABS: Influenza A, PCR Not Detected (NotDetected); Influenza B, PCR Not Detected (NotDetected)
[2021-10-23 16:51] LABS: Basophils # 0.2 K/mm3 (0-0.2); Basophils % 2.8 % (0.1-2.0); Eosinophils % 0.6 % (0.1-12.0); Hematocrit 46.6 % (42.0-52.0); Hemoglobin 15.7 g/dL (14.1-18.0); Lymphocytes # 1.6 K/mm3 (0.7-4.5); Mean Corpuscular HGB Conc 33.7 g/dL (31.8-35.4); Mean Corpuscular Hemoglobin 30.8 pg (27.0-31.2); Mean Corpuscular Volume 91.4 fl (80-94); Mean Platelet Volume 6.7 fl (7.4-10.4); Monocytes # 0.8 K/mm3 (0.1-1.0); Monocytes % 13.7 % (1.7-9.3); Neutrophils # 3.2 K/mm3 (1.8-7.8); Platelet Count 224 K/mm3 (142-424); Red Cell Distribution Width 12.7 % (11.5-17.5); White Blood Count 5.8 K/mm3 (4.8-10.8)
[2021-10-23 16:56] LABS: Alanine Aminotransferase 46 U/L (12-78); Albumin Level 4.4 g/dl (3.5-5.0); Albumin/Globulin Ratio 1.4 (1.1-1.8); Alkaline Phosphatase 47 U/L (38-126); Aspartate Amino Transferase 41 U/L (17-59); Blood Urea Nitrogen 14 mg/dl (9-20); Calcium 9.2 mg/dl (8.4-10.2); Carbon Dioxide 28 mmol/L (22.0-30.0); Chloride 100 mmol/L (98-107); Creatinine Clearance Estimated 159 mL/min (50-200); Estimated Glomerular Filt Rate 100 ml/min (>60); GFR (African American) 121 ML/MIN (>60); Globulin 3.1 g/dL (1.3-3.2); Glucose 120 mg/dl (74-100); Sodium 135 mmol/L (136-145); Total Protein,Serum 7.5 g/dl (6.3-8.2)
[2021-10-23 16:59] LABS: Bilirubin,Total < 0.1 mg/dl (0.2-1.3)
--- NOTE | 2021-10-23 17:13 | HMH.EDGENADL ---
ED Disposition Clinical Impression: COVID-19 Disposition: Home, Self-Care Condition on Discharge: Good Instructions: DI for COVID-19 (Suspected or Confirmed ) Prescriptions: methylPREDNISolone [Medrol 4mg tab] 4 mg PO DIRECTED #21 tab Transmission Status: Pending to [facility] Referrals: Deniz Ellis MD [Primary Care Provider] - - Critical Care Critical Care Time: No Attestation: On 10/23/21, the high probability of a clinically significant, sudden or life threatening deterioration of the following system(s) required my full and direct attention, intervention and personal management. The time I documented below is in addition to time spent performing reported procedures but includes the following listed in this critical care notation. Medical Decision Making - Medical Records Medical records reviewed: Yes: I reviewed the patient's medical records. - Daniel Inquiry Pt receiving controlled substance: No Vital Signs: 10/23/21 16:22 10/23/21 16:30 10/23/21 17:00 Temperature 98.6 F Temperature Source Oral Pulse Rate 74 68 Pulse Rate [Right Radial] 71 Respiratory Rate 16 Blood Pressure 114/84 119/78 Blood Pressure [Right Arm] 114/84 Blood Pressure Mean [Right Arm] 94 Blood Pressure Source [Right Arm] Automatic Cuff Blood Pressure Position [Right Arm] Sitting 02 Sat by Pulse Oximetry 96 95 95 Oxygen Delivery Method Room Air 10/23/21 17:30 Temperature Temperature Source Pulse Rate 64 Pulse Rate [Right Radial] Respiratory Rate Blood Pressure 112/71 Blood Pressure [Right Arm] Blood Pressure Mean [Right Arm] Blood Pressure Source [Right Arm] Blood Pressure Position [Right Arm] 02 Sat by Pulse Oximetry 96 Oxygen Delivery Method - Lab Data Lab Results 10/23/21 16:35: SARS-CoV-2 (PCR) Detected A, Influenza A Untype (PCR) Not detected, Influenza Type B (PCR) Not detected 10/23/21 16:35: WBC 5.8, RBC 5.10, Hgb 15.7, Hct 46.6, MCV 91.4, MCH 30.8, MCHC 33.7, RDW 12.7, Plt Count 224, MPV 6.7 L, Neut % (Auto) 55.0, Lymph % (Auto) 28.0, [place] % (Auto) 13.7 H, Eos % (Auto) 0.6, Baso % (Auto) 2.8 H, Neut # (Auto) 3.2, Lymph # (Auto) 1.6, [place] # (Auto) 0.8, Eos # (Auto) 0.0, Baso # (Auto) 0.2 10/23/21 16:35: Sodium 135 L, Potassium 4.0, Chloride 100, Carbon Dioxide 28, Anion Gap 11.0, BUN 14, Creatinine 0.80, Estimated Creat Clear 159, Estimated GFR 100, Est GFR ( Amer) 121, Glucose 120 H, Calcium 9.2, Total Bilirubin < 0.1 L, AST 41, ALT 46, Alkaline Phosphatase 47, Total Protein 7.5, Albumin 4.4, Globulin 3.1, Albumin/Globulin Ratio 1.4 Result diagrams: 10/23/21 16:35 10/23/21 16:35 Orders (Tests/Meds): ED MEDICATIONS Generic Name Dose Route Start Last Admin Trade Name Freq PRN Reason Stop Dose Admin Sodium Chloride 1,000 mls @ 999 mls/hr 10/23/21 16:45 10/23/21 17:30 Sod Chlor 0.9% 1000ml Bag IV 10/23/21 17:45 999 mls/hr .Q1H1M DOE Administration Discontinued Medications Generic Name Dose Route Start Last Admin Trade Name Freq PRN Reason Stop Dose Admin Ketorolac Tromethamine 30 mg 10/23/21 16:37 10/23/21 17:30 Ketorolac 30mg/Ml Vial IV 10/23/21 16:38 30 mg ONCE ONE Administration Ondansetron HCl 4 mg 10/23/21 16:37 10/23/21 17:30 Ondansetron 4mg/2ml Vial IV 10/23/21 16:38 4 mg ONCE ONE Administration - Radiology Data #1 Image(s): Chest Image Reviewed: Yes I reviewed the patient's radiology results, Yes I reviewed the patient's radiology image, Yes I have reviewed radiologist's interpretation Preliminary Findings: Normal/NAD - Reevaluation(s) Time: 18:18 Reevaluation #1: On reevaluation, patient is feeling better. Patient's COVID swab was positive. X-ray unremarkable. There is no evidence of respiratory distress or hemodynamic instability. Patient be placed on a short course of steroids. He is to follow-up with PCP in 48 hours. Given strict return precautions. Verbalized understan
--- NOTE | 2021-10-23 17:35 | PC.NURSE ---
PT MEDICATED AT THIS TIME, LIGHTS OFF FOR COMFORT. NO FURTHER NEEDS
[2021-10-23 17:43] LABS: Coronavirus 19, PCR Detected (NotDetected)
--- NOTE | 2021-10-23 18:21 | PC.NURSE ---
AT BEDSIDE TO REEVALUATE PT
== END 2021-10-23 18:40 | disposition home or self-care (01) ==
PROVIDERS: Emergency Provider Emergency Medicine; PCP Emergency Medicine
DX: U07.1 COVID-19 (principal); R51.9 Headache, unspecified; R11.2 Nausea with vomiting, unspecified; Z79.899 Other long term (current) drug therapy; Z88.6 Allergy status to analgesic agent; I10 Essential (primary) hypertension; E78.5 Hyperlipidemia, unspecified; I25.10 Atherosclerotic heart disease of native coronary artery without angina pectoris; I73.9 Peripheral vascular disease, unspecified; M19.90 Unspecified osteoarthritis, unspecified site; M81.0 Age-related osteoporosis without current pathological fracture; F41.9 Anxiety disorder, unspecified
CPT/HCPCS: 71045; 80053; 85025; 96374; 96375; 99284; C9803; J2405; U0003; U0005

== ENCOUNTER → 2022-01-05 13:52 | Outpatient (CLI) | payer OTHER, SELFPAY ==
[2022-01-05 15:32] LABS: Amphetamine/Metha Screen,Urine Negative ng/ml (<1000)
[2022-01-05 15:33] LABS: Barbiturates Screen,Urine Negative ng/ml (<200); Benzodiazepines Screen,Urine Negative ng/ml (<200)
[2022-01-05 15:34] LABS: Cannabinoid Screen,Urine Positive ng/ml (<50)
[2022-01-05 15:35] LABS: Cocaine Screen,Urine Negative ng/ml (<300); Methadone Screen,Urine Negative ng/ml (<300)
[2022-01-05 15:36] LABS: Opiate Screen,Urine Negative ng/ml (<300)
[2022-01-05 15:37] LABS: Phencyclidine Screen,Urine Negative ng/ml (<25)
== END ==
PROVIDERS: PCP Emergency Medicine; Visit Provider Emergency Medicine
DX: Z79.899 Other long term (current) drug therapy (principal)
CPT/HCPCS: 80305

== ENCOUNTER → 2022-03-05 09:20 | Outpatient (CLI) | payer OTHER, SELFPAY ==
[2022-03-05 19:30] LABS: Amphetamine/Metha Screen,Urine Negative ng/ml (<1000)
[2022-03-05 19:31] LABS: Barbiturates Screen,Urine Negative ng/ml (<200)
[2022-03-05 19:32] LABS: Benzodiazepines Screen,Urine Negative ng/ml (<200); Cannabinoid Screen,Urine Positive ng/ml (<50)
[2022-03-05 19:34] LABS: Cocaine Screen,Urine Negative ng/ml (<300); Methadone Screen,Urine Negative ng/ml (<300)
[2022-03-05 19:35] LABS: Opiate Screen,Urine Negative ng/ml (<300)
[2022-03-05 19:36] LABS: Phencyclidine Screen,Urine Negative ng/ml (<25)
== END ==
PROVIDERS: PCP Emergency Medicine; Visit Provider Emergency Medicine
DX: I73.9 Peripheral vascular disease, unspecified (principal); Z79.899 Other long term (current) drug therapy
CPT/HCPCS: 80305

== ENCOUNTER 2022-04-02 15:03 | Emergency (ER) | payer OTHER, SELFPAY ==
[2022-04-02 15:04] VITALS: BP 128/99; PULSE 64; RESP 18; TEMP 36.8; O2SAT 98; BMI 32.1
--- NOTE | 2022-04-02 17:02 | PC.NURSE ---
PT AMBULATED TO BR PER PT REQUEST
--- NOTE | 2022-04-02 17:19 | HMH.EDGENADL ---
Discharge Plan Disposition Patient Disposition: Home, Self-Care Condition: Good Chief Complaint: PAIN Prescriptions Prescriptions: No Action nicotine 21 mg/24 hr patch 24 hour 1 patch transdermal DAILY Qty: 28 1RF gabapentin 300 mg capsule 300 mg PO TID Qty: 90 1RF hydrocodone-acetaminophen 5-325 mg tablet 1 tab PO TID Qty: 90 0RF nicotine 21 mg/24 hr patch 24 hour 1 patch TRANSDERMA DAILY Qty: 28 3RF aspirin 81 mg tablet,delayed release (DR/EC) 81 mg PO DAILY Qty: 100 5RF lidocaine [Lidoderm] 5 % adhesive patch,medicated See Rx Instructions .ROUTE .COMPLEX Qty: 30 5RF Dose Instruction: apply 1 PATCH topically TO most painful AREA AND LEAVE ON FOR UP TO 12 hours THEN REMOVE FOR 12 hours DIRECTED -- FOR EXTERNAL USE ONLY-- Rx Instructions: apply 1 PATCH topically TO most painful AREA AND LEAVE ON FOR UP TO 12 hours THEN REMOVE FOR 12 hours DIRECTED -- FOR EXTERNAL USE ONLY-- ergocalciferol (vitamin D2) 1,250 mcg (50,000 unit) capsule 1,250 mcg PO WEEKLY Qty: 14 3RF cholecalciferol (vitamin D3) 25 mcg (1,000 unit) capsule 25 mcg PO DAILY Qty: 90 3RF losartan 25 mg tablet See Rx Instructions .ROUTE .COMPLEX Qty: 90 2RF Dose Instruction: TAKE ONE TABLET BY MOUTH EVERY DAY Rx Instructions: TAKE ONE TABLET BY MOUTH EVERY DAY cyclobenzaprine 10 mg tablet See Rx Instructions .ROUTE .COMPLEX Qty: 90 5RF Dose Instruction: TAKE ONE TABLET BY MOUTH THREE TIMES DAILY DIRECTED MAY CAUSE DROWSINESS Rx Instructions: TAKE ONE TABLET BY MOUTH THREE TIMES DAILY DIRECTED MAY CAUSE DROWSINESS metoprolol succinate 50 mg tablet extended release 24 hr See Rx Instructions .ROUTE .COMPLEX Qty: 15 5RF Dose Instruction: TAKE 1/2 TABLET BY MOUTH EVERY DAY Rx Instructions: TAKE 1/2 TABLET BY MOUTH EVERY DAY rosuvastatin 20 mg tablet See Rx Instructions .ROUTE .COMPLEX Qty: 30 5RF Dose Instruction: TAKE ONE TABLET BY MOUTH EVERY DAY Rx Instructions: TAKE ONE TABLET BY MOUTH EVERY DAY colchicine 0.6 mg capsule See Rx Instructions .ROUTE .COMPLEX Qty: 60 5RF Dose Instruction: TAKE ONE CAPSULE BY MOUTH TWICE DAILY NEEDED FOR GOUT Rx Instructions: TAKE ONE CAPSULE BY MOUTH TWICE DAILY NEEDED FOR GOUT indomethacin 50 mg capsule See Rx Instructions .ROUTE .COMPLEX Qty: 60 5RF Dose Instruction: TAKE ONE CAPSULE BY MOUTH TWICE DAILY NEEDED FOR GOUT --TAKE WITH FOOD-- Rx Instructions: TAKE ONE CAPSULE BY MOUTH TWICE DAILY NEEDED FOR GOUT --TAKE WITH FOOD-- Referrals Follow up/Referrals: Deniz Ellis MD [Primary Care Provider] - See instructions Activity Restrictions/Add. Instructions Additional Instructions/Restrictions: Follow-up tomorrow, 04/03 as discussed. You will receive left lower extremity ultrasound. If you have any other concerning signs or symptoms, return to the ED or your primary care provider for further evaluation. Clinical Impressions Clinical Impression: Acute pain of left lower extremity Discharge ED Provider: Hany Greer General Adult HPI General Chief complaint: PAIN Stated complaint: left leg pain Time Seen by Provider: 04/02/22 17:00 Mode of Arrival: Wheelchair Source of Information: Patient Limitations: No Limitations Description of Symptoms (Recalled from ER Triage Doc. by RN): PT STATES HE HAS HAD CONSTANT L CALF PAIN FOR 3 DAYS THAT IS RADIATING UP TO HIS BUTT, STATES HE FEELS LIKE HIS LEG IS GOING TO POP, DENIES ANY INJURY, HAS HISTORY OF LEG CRAMPS FOR LAST SEVERAL YEARS History of Present Illness HPI narrative: This is a 57-year-old male with history of gout, bilateral osteoarthritis of his knees, ACS, tobacco use, hypertension, chronic leg cramps who is presenting with left lower extremity pain. Patient states that he has had worsening cramps in his left lower extremity for the past 3 days. He was sitting down w
--- NOTE | 2022-04-02 17:58 | PC.NURSE ---
Rounded on patient at this time and updated him on POC. No new needs at this time.
[2022-04-02 18:19] LABS: Basophils # 0.1 K/mm3 (0-0.2); Basophils % 1.1 % (0.1-2.0); Eosinophils # 0.3 K/mm3 (0.0-0.4); Eosinophils % 2.8 % (0.1-12.0); Hematocrit 41.4 % (42.0-52.0); Lymphocytes # 3.2 K/mm3 (0.7-4.5); Lymphocytes % 34.7 % (10-50); Mean Corpuscular HGB Conc 33.9 g/dL (31.8-35.4); Mean Corpuscular Hemoglobin 30.3 pg (27.0-31.2); Mean Corpuscular Volume 89.4 fl (80-94); Mean Platelet Volume 8.1 fl (7.4-10.4); Monocytes # 0.6 K/mm3 (0.1-1.0); Monocytes % 6.5 % (1.7-9.3); Neutrophils # 5.1 K/mm3 (1.8-7.8); Neutrophils % 54.9 % (37.0-80.0); Platelet Count 249 K/mm3 (142-424); Red Blood Count 4.62 M/mm3 (4.60-6.20); Red Cell Distribution Width 12.5 % (11.5-17.5); White Blood Count 9.3 K/mm3 (4.8-10.8)
[2022-04-02 18:37] LABS: Blood Urea Nitrogen 15 mg/dl (9-20); Calcium 9.1 mg/dl (8.4-10.2); Carbon Dioxide 29 mmol/L (22.0-30.0); Chloride 104 mmol/L (98-107); Creatine Kinase 111 U/L (55-170); Creatinine Clearance Estimated 163 mL/min (50-200); Estimated Glomerular Filt Rate 100 ml/min (>60); GFR (African American) 121 ML/MIN (>60); Glucose 88 mg/dl (74-100); Sodium 137 mmol/L (136-145)
[2022-04-02 20:21] VITALS: BP 161/75; PULSE 73; RESP 16; TEMP 36.6; O2SAT 97
== END 2022-04-02 20:25 | disposition home or self-care (01) ==
PROVIDERS: Emergency Provider Emergency Medicine; PCP Emergency Medicine
DX: M79.605 Pain in left leg (principal); M79.10 Myalgia, unspecified site; R94.39 Abnormal result of other cardiovascular function study; R00.2 Palpitations; I10 Essential (primary) hypertension; I25.119 Atherosclerotic heart disease of native coronary artery with unspecified angina pectoris; I24.9 Acute ischemic heart disease, unspecified; M10.9 Gout, unspecified; M17.0 Bilateral primary osteoarthritis of knee; F17.200 Nicotine dependence, unspecified, uncomplicated; Z79.01 Long term (current) use of anticoagulants; Z79.82 Long term (current) use of aspirin; Z79.899 Other long term (current) drug therapy; Z88.5 Allergy status to narcotic agent
CPT/HCPCS: 36415; 80048; 82550; 85025; 85378; 96372; 99284

== ENCOUNTER → 2022-04-03 11:23 | Outpatient (CLI) | payer OTHER, SELFPAY ==
--- NOTE | 2022-04-03 | CA_ITS ---
FINAL REPORT TECHNIQUE: Ultrasound images of the deep venous system were obtained from the left groin to the calf veins. CLINICAL HISTORY: .pt seen in ER last night with elevated D-dimer, Hx-Gout, Hx bilat knee troubles. Pt pant ed, hyperventillated and bore down in pain throughout limited exam, FINDINGS: Exam is technically limited secondary to patient cooperation. The visualized deep venous system is normally compressible. Normal flow is identified. IMPRESSION: Technically limited exam secondary to patient cooperation. No DVT visualized. Reviewed, Interpreted and Dictated by Jimmy Monsalve III, MD Transcribed by Henry Ledesma Authenticated and . [facility]
== END ==
LOC: RT 11:25
PROVIDERS: PCP Emergency Medicine; Visit Provider Emergency Medicine
DX: M79.662 Pain in left lower leg (principal)
CPT/HCPCS: 93971

== ENCOUNTER → 2022-04-11 11:18 | Outpatient (CLI) | payer OTHER, SELFPAY ==
[2022-04-10 15:42] LABS: Amphetamine/Metha Screen,Urine Negative ng/ml (<1000)
[2022-04-10 15:43] LABS: Barbiturates Screen,Urine Negative ng/ml (<200); Benzodiazepines Screen,Urine Negative ng/ml (<200)
[2022-04-10 15:44] LABS: Cannabinoid Screen,Urine Positive ng/ml (<50)
[2022-04-10 15:45] LABS: Cocaine Screen,Urine Negative ng/ml (<300); Methadone Screen,Urine Negative ng/ml (<300)
[2022-04-10 15:46] LABS: Opiate Screen,Urine Negative ng/ml (<300); Phencyclidine Screen,Urine Negative ng/ml (<25)
== END ==
PROVIDERS: PCP Emergency Medicine; Visit Provider Emergency Medicine
DX: Z79.899 Other long term (current) drug therapy (principal)
CPT/HCPCS: 80305

== ENCOUNTER → 2022-06-08 15:24 | Outpatient (CLI) | payer OTHER, SELFPAY ==
[2022-06-08 14:35] LABS: Amphetamine/Metha Screen,Urine Negative ng/ml (<1000); Benzodiazepines Screen,Urine Negative ng/ml (<200)
[2022-06-08 14:36] LABS: Cannabinoid Screen,Urine Positive ng/ml (<50)
[2022-06-08 14:37] LABS: Cocaine Screen,Urine Negative ng/ml (<300); Methadone Screen,Urine Negative ng/ml (<300)
[2022-06-08 14:38] LABS: Opiate Screen,Urine Positive ng/ml (<300)
[2022-06-08 14:39] LABS: Phencyclidine Screen,Urine Negative ng/ml (<25)
[2022-06-08 14:57] LABS: Barbiturates Screen,Urine Negative ng/ml (<200)
== END ==
PROVIDERS: PCP Emergency Medicine; Visit Provider Emergency Medicine
DX: Z79.899 Other long term (current) drug therapy (principal)
CPT/HCPCS: 80305

== ENCOUNTER 2022-07-11 13:24 | Emergency (ER) | payer OTHER, SELFPAY ==
[2022-07-11 13:30] VITALS: BP 120/88; PULSE 60
[2022-07-11 13:34] VITALS: BP 120/88; PULSE 60; RESP 18; TEMP 36.6; O2SAT 99; BMI 30.8
--- NOTE | 2022-07-11 13:40 | HMH.EDGENADL ---
Discharge Plan Disposition Patient Disposition: Home, Self-Care Condition: Good Prescriptions Prescriptions: New sulfamethoxazole-trimethoprim [Bactrim DS] 800-160 mg tablet 1 tab PO BID 7 Days Qty: 14 0RF No Action cyclobenzaprine 10 mg tablet See Rx Instructions .ROUTE .COMPLEX Qty: 90 5RF Dose Instruction: TAKE ONE TABLET BY MOUTH THREE TIMES DAILY DIRECTED MAY CAUSE DROWSINESS Rx Instructions: TAKE ONE TABLET BY MOUTH THREE TIMES DAILY DIRECTED MAY CAUSE DROWSINESS lidocaine [Lidoderm] 5 % adhesive patch,medicated See Rx Instructions .ROUTE .COMPLEX Qty: 30 5RF Dose Instruction: apply 1 PATCH topically TO most painful AREA AND LEAVE ON FOR UP TO 12 hours THEN REMOVE FOR 12 hours DIRECTED -- FOR EXTERNAL USE ONLY-- Rx Instructions: apply 1 PATCH topically TO most painful AREA AND LEAVE ON FOR UP TO 12 hours THEN REMOVE FOR 12 hours DIRECTED -- FOR EXTERNAL USE ONLY-- cholecalciferol (vitamin D3) 25 mcg (1,000 unit) capsule 25 mcg PO DAILY Qty: 90 3RF ergocalciferol (vitamin D2) 1,250 mcg (50,000 unit) capsule 1,250 mcg PO WEEKLY Qty: 14 3RF Xarelto 20 mg tablet 20 mg PO DAILY Qty: 30 6RF Rx Instructions: must administer with evening meal gabapentin 300 mg capsule 300 mg PO TID Qty: 90 1RF hydrocodone-acetaminophen 10-325 mg tablet 1 tab PO TID Qty: 90 0RF aspirin 81 mg tablet,delayed release (DR/EC) 81 mg PO DAILY Qty: 100 5RF colchicine 0.6 mg capsule See Rx Instructions .ROUTE .COMPLEX Qty: 60 5RF Dose Instruction: TAKE ONE CAPSULE BY MOUTH TWICE DAILY NEEDED FOR GOUT Rx Instructions: TAKE ONE CAPSULE BY MOUTH TWICE DAILY NEEDED FOR GOUT indomethacin 50 mg capsule See Rx Instructions .ROUTE .COMPLEX Qty: 60 5RF Dose Instruction: TAKE ONE CAPSULE BY MOUTH TWICE DAILY NEEDED FOR GOUT --TAKE WITH FOOD-- Rx Instructions: TAKE ONE CAPSULE BY MOUTH TWICE DAILY NEEDED FOR GOUT --TAKE WITH FOOD-- rosuvastatin 20 mg tablet See Rx Instructions .ROUTE .COMPLEX Qty: 30 5RF Dose Instruction: TAKE ONE TABLET BY MOUTH EVERY DAY Rx Instructions: TAKE ONE TABLET BY MOUTH EVERY DAY metoprolol succinate 50 mg tablet extended release 24 hr See Rx Instructions .ROUTE .COMPLEX Qty: 15 5RF Dose Instruction: TAKE 1/2 TABLET BY MOUTH EVERY DAY Rx Instructions: TAKE 1/2 TABLET BY MOUTH EVERY DAY losartan 25 mg tablet See Rx Instructions .ROUTE .COMPLEX Qty: 90 1RF Dose Instruction: TAKE ONE TABLET BY MOUTH EVERY DAY Rx Instructions: TAKE ONE TABLET BY MOUTH EVERY DAY Referrals Follow up/Referrals: Deniz Ellis MD [Primary Care Provider] - See instructions Clinical Impressions Clinical Impression: Cellulitis Instructions Patient Instructions: DI for Skin Abscess Discharge ED Provider: Juanjo Jaquez General Adult HPI General Chief complaint: Skin/Abscess/Foreign Body Stated complaint: RT hand pain AO 07/02@home nail hit index finger Time Seen by Provider: 07/11/22 13:30 Mode of Arrival: Ambulatory Source of Information: Patient Limitations: No Limitations Description of Symptoms (Recalled from ER Triage Doc. by RN): pt comes in with left hand index finger redness. saturday pt reports a nail bending back and hitting his knuckle while he was attempting to put trim up. History of Present Illness HPI narrative: 57yo M presents to the ER secondary to pain and swelling in his left index finger and involving his hand. Patient stabbed by a nail on Saturday. Has had worsening pain and swelling since that time. Not a diabetic. Uncertain last tetanus shot Related Data Previous Rx's Medication Instructions Recorded aspirin 81 mg tablet,delayed 81 mg PO DAILY #100 tabs 05/01/21 release colchicine 0.6 mg capsule See Rx Instructions .Route 11/17/21 .COMPLEX #60 caps indomethacin 50 mg capsule See Rx Instructions .Route
[2022-07-11 13:50] VITALS: BP 120/88; PULSE 60; RESP 15; TEMP 36.6
[2022-07-11 14:38] LABS: Basophils # 0.1 K/mm3 (0-0.2); Eosinophils # 0.1 K/mm3 (0.0-0.4); Eosinophils % 2.1 % (0.1-12.0); Hematocrit 46.9 % (42.0-52.0); Hemoglobin 14.8 g/dL (14.1-18.0); Lymphocytes # 2.9 K/mm3 (0.7-4.5); Lymphocytes % 43.8 % (10-50); Mean Corpuscular HGB Conc 31.6 g/dL (31.8-35.4); Mean Corpuscular Hemoglobin 29.8 pg (27.0-31.2); Mean Corpuscular Volume 94.5 fl (80-94); Mean Platelet Volume 7.9 fl (7.4-10.4); Monocytes # 0.5 K/mm3 (0.1-1.0); Monocytes % 7.6 % (1.7-9.3); Neutrophils # 3.1 K/mm3 (1.8-7.8); Neutrophils % 45.6 % (37.0-80.0); Platelet Count 276 K/mm3 (142-424); Red Blood Count 4.96 M/mm3 (4.60-6.20); Red Cell Distribution Width 13.3 % (11.5-17.5); White Blood Count 6.7 K/mm3 (4.8-10.8)
[2022-07-11 14:53] LABS: C-Reactive Protein 3.1 mg/L (0-4)
[2022-07-11 15:24] LABS: Erythrocyte Sedimentation Rate 16 mm/hr (0-20)
== END 2022-07-11 13:55 | disposition home or self-care (01) ==
PROVIDERS: Emergency Provider Family Medicine; PCP Emergency Medicine
DX: L03.012 Cellulitis of left finger (principal); M79.642 Pain in left hand
CPT/HCPCS: 85025; 85651; 86140; 90715; 96372; 99283

== ENCOUNTER → 2022-07-27 06:28 | Outpatient (CLI) | payer OTHER, SELFPAY ==
--- NOTE | 2022-07-27 06:28 | CT_ITS ---
FINAL REPORT CLINICAL HISTORY: lung cancer screening current smoker 1ppd x20 years COMPARISON: 07/24/2021 FINDINGS: Axial images were obtained from the lung apex to the mid abdomen by computed tomography. Low-dose protocol was utilized. CTDl vol(mGy): 2.9 DLP (mGy-cm): 98.21 FINDINGS: There is no axillary adenopathy. There is no hilar or mediastinal adenopathy. The heart size is normal. There are severe coronary artery calcifications. There is no pericardial or pleural effusion. Limited images of the upper abdomen are unremarkable. Lung window images demonstrate no suspicious infiltrate or nodule. IMPRESSION: Lung RADS category 1. Recommend 12 month follow-up low-dose chest CT. Category S: Severe coronary artery calcifications. Reviewed, Interpreted and Dictated by Jimmy Monsalve III, MD Transcribed by Linda Mcintyre Authenticated and [facility]
== END ==
PROVIDERS: PCP Emergency Medicine; Visit Provider Internal Medicine Pulmonary Disease
DX: Z87.891 Personal history of nicotine dependence (principal); Z12.2 Encounter for screening for malignant neoplasm of respiratory organs
CPT/HCPCS: 71271

== ENCOUNTER → 2022-08-01 09:06 | Outpatient (CLI) | payer OTHER, SELFPAY ==
[2022-08-01 16:16] LABS: Amphetamine/Metha Screen,Urine Negative ng/ml (<1000)
[2022-08-01 16:17] LABS: Barbiturates Screen,Urine Negative ng/ml (<200)
[2022-08-01 16:18] LABS: Benzodiazepines Screen,Urine Negative ng/ml (<200); Cannabinoid Screen,Urine Positive ng/ml (<50)
[2022-08-01 16:19] LABS: Cocaine Screen,Urine Negative ng/ml (<300); Methadone Screen,Urine Negative ng/ml (<300)
[2022-08-01 16:20] LABS: Opiate Screen,Urine Positive ng/ml (<300)
[2022-08-01 16:22] LABS: Phencyclidine Screen,Urine Negative ng/ml (<25)
== END ==
PROVIDERS: PCP Emergency Medicine; Visit Provider Emergency Medicine
DX: Z79.899 Other long term (current) drug therapy (principal)
CPT/HCPCS: 80305

== ENCOUNTER → 2022-09-26 11:00 | Outpatient (CLI) | payer OTHER, SELFPAY ==
[2022-09-26 13:17] LABS: Amphetamine/Metha Screen,Urine Negative ng/ml (<1000)
[2022-09-26 13:18] LABS: Barbiturates Screen,Urine Negative ng/ml (<200); Benzodiazepines Screen,Urine Negative ng/ml (<200)
[2022-09-26 13:19] LABS: Cannabinoid Screen,Urine Positive ng/ml (<50)
[2022-09-26 13:20] LABS: Cocaine Screen,Urine Negative ng/ml (<300); Methadone Screen,Urine Negative ng/ml (<300)
[2022-09-26 13:21] LABS: Opiate Screen,Urine Positive ng/ml (<300)
[2022-09-26 13:22] LABS: Phencyclidine Screen,Urine Negative ng/ml (<25)
== END ==
PROVIDERS: PCP Emergency Medicine; Visit Provider Emergency Medicine
DX: G89.29 Other chronic pain (principal); M25.561 Pain in right knee; M25.562 Pain in left knee
CPT/HCPCS: 80305